=== PATIENT | female | born 1960 | race Caucasian/White ===

== ENCOUNTER 2016-10-23 15:27 | Emergency (ER) | payer BC ==
[2016-10-23 16:33] VITALS: BP 108/82
--- NOTE | 2016-10-23 18:06 | EDM.PDOC ---
ED HPI GENERAL MEDICAL PROBLEM - General Chief Complaint: Back Pain or Injury Stated Complaint: [id number] BACK PAIN Time Seen by Provider: 10/23/16 17:50 Source of Information: Reports: Patient, RN Notes Reviewed History Limitations: Reports: No Limitations - History of Present Illness INITIAL COMMENTS - FREE TEXT/NARRATIVE: the patient is a 56-year-old morbidly obese female who presents today with low back pain. She denies any injury or falls she denies any saddle anesthesia or numbness she does report some urinary symptoms with dysuria frequency and urgency. She denies fever chills nausea or vomiting. Onset: Gradual Quality: Reports: Burning, Dull Severity: Mild Improves with: Reports: None Worsens with: Reports: None Bilateral Lower Posterior Back Pain Score (Numeric/FACES): 8 - Related Data Allergies Allergy/AdvReac Type Severity Reaction Status Date / Time No Known Allergies Allergy Verified 10/23/16 16:21 Home Meds: Home Meds Aspirin [Gunjan Chewable Aspirin] 81 mg PO DAILY 07/25/13 [History] Atenolol [Tenormin] 25 mg PO DAILY 07/25/13 [History] Calcium Carbonate [Calcium] 500 mg PO BID 07/25/13 [History] Escitalopram [Lexapro] 20 mg PO DAILY 07/25/13 [History] Furosemide 20 mg PO BID 07/25/13 [History] Gabapentin [Neurontin] 100 mg PO BEDTIME 07/25/13 [History] Magnesium 250 mg PO DAILY 07/25/13 [History] Pantoprazole [ProTONIX] 40 mg PO DAILY 07/25/13 [History] Warfarin Sodium [Jantoven] 3.5 mg PO DAILY 07/25/13 [History] Warfarin Sodium [Jantoven] 4 mg PO DAILY 07/25/13 [History] atorvaSTATin [Lipitor] 20 mg PO BEDTIME 07/25/13 [History] Acetaminophen [Mapap] 325 mg PO 10/23/16 [History] Albuterol [Proair HFA] 8.5 gm INH PRN 10/23/16 [History] Beclomethasone Dipropionate [Qvar] 8.7 gm IH 10/23/16 [History] Cetirizine [ZyrTEC] 10 mg PO BEDTIME 10/23/16 [History] Cholecalciferol (Vitamin D3) [Vitamin D3] 1,000 unit PO 10/23/16 [History] Ipratropium [Atrovent] 0.5 mg INH PRN 10/23/16 [History] Nitroglycerin [Nitrostat] 0.4 mg BUCCAL PRN 10/23/16 [History] Zolpidem [Ambien] 10 mg PO BEDTIME 10/23/16 [History] Past Medical History HEENT History: Reports: Impaired Vision Other HEENT History: Sees well with glasses Cardiovascular History: Reports: Blood Clots/VTE/DVT, Hypertension Other Cardiovascular History: Hx of fluid on the heart May 2012. Stent was placed Respiratory History: Reports: Asthma, COPD Musculoskeletal History: Reports: Other (See Below) Other Musculoskeletal History: Ankle fracture October 2012 Psychiatric History: Reports: Depression - Past Surgical History Cardiovascular Surgical History: Reports: Coronary Artery Stent Social & Family History - Family History Psychiatric: Reports: Depression - Tobacco Use Smoking Status *Q: Never Smoker Years of Tobacco use: 30 Used Tobacco, but Quit: Yes Month Tobacco Last Used: November Second Hand Smoke Exposure: No - Caffeine Use Caffeine Use: Reports: Coffee, Soda - Alcohol Use Days Per Week of Alcohol Use: 0 - Recreational Drug Use Recreational Drug Use: No ED ROS GENERAL - Review of Systems Review Of Systems: ROS reveals no pertinent complaints other than HPI. ED EXAM, RENAL/ - Physical Exam Exam: See Below Exam Limited By: No Limitations General Appearance: Alert, WD/WN, No Apparent Distress, Other (morbidly obese) Head: Atraumatic, Normocephalic Neck: Normal Inspection, Supple, Non-Tender, Full Range of Motion Respiratory/Chest: No Respiratory Distress, Lungs Clear, Normal Breath Sounds, No Accessory Muscle Use, Chest Non-Tender Cardiovascular: Normal Peripheral Pulses, Regular Rate, Rhythm, No Edema, No Gallop, No JVD, No Murmur, No Rub GI/Abdominal: Normal Bowel Sounds, Soft, Non-Tender, No Organomegaly, No Distention, No Abnormal Bruit, No Mass Back Exam: Normal Inspection, Full Range of Motion, Paraspinal Tenderness ( bilaterally) Extremities: Normal Inspection, Normal Range of Motion, Non-Tender, Normal Capillary Refill, No Pedal Edema Neurological: Alert, Oriented, CN II-XII Intact, Normal Cognition, Normal Gait, Normal Reflexes, No Motor/Sensory Deficits Skin Exam: Warm, Dry, Intact, Normal Color, No Rash Course - Vital Signs Last Recorded V/S: Last Vital Signs Temp 98.5 F 10/23/16 16:23 Pulse 70 10/23/16 16:23 Resp 17 10/23/16 16:23 BP 108/82 10/23/16 16:23 Pulse Ox 96 10/23/16 16:23 - Orders/Labs/Meds Labs: Laboratory Tests 10/23/16 Range/Units 17:05 Urine Color Yellow (YELLOW) Urine Appearance Cloudy (CLEAR) Urine pH 6.0 (5.0-9.0) Ur Specific [place] 1.010 (1.005-1.030) Urine Protein Negative (NEGATIVE) Urine Glucose (UA) Negative (NEGATIVE) Urine Ketones Negative (NEGATIVE) Urine Occult Blood Trace-intact H (NEGATIVE) Urine Nitrite Positive H (NEGATIVE) Urine Bilirubin Negative (NEGATIVE) Urine Urobilinogen 0.2 (0.2-1.0) mg/dL Ur Leukocyte Esterase Moderate H (NEGATIVE) Urine RBC 0-5 /HPF Urine WBC 20-30 H (0-5/HPF) /HPF Ur Epithelial Cells Few /HPF Urine Bacteria Many H (0-FEW/HPF) /HPF - Re-Assessments/Exams Free Text/Narrative Re-Assessment/Exam: 10/23/16 18:06 patient above exam and labs were obtained and reviewed and patient found to have large urinary tract infection will be treated as Departure - Departure Time of Disposition: 18:06 Disposition: Home, Self-Care 01 Condition: good Clinical Impression: Urinary tract infection Qualifiers: Urinary tract infection type: acute cystitis Hematuria presence: with hematuria Qualified Code(s): N30.01 - Acute cystitis with hematuria - Discharge Information Instructions: Urinary Tract Infection, Adult, [id number] Forms: ED Department Discharge Additional Instructions: Discharge diagnose Urinate tract infection push clear liquids Take antibiotics till gone Follow up with PCP for Urine recheck in 10 days to ensure infection is gone or if you continue to have low back pain Use diclofenac as needed for discomfort do not mix with Motrin ibuprofen Advil or Aleve Return for increased pain nausea vomiting fever or worsening symptoms
== END 2016-10-23 18:11 | disposition home or self-care (01) ==
LOC: DL.ED 15:27
DX: N30.01 Acute cystitis with hematuria (principal); J45.909 Unspecified asthma, uncomplicated; J44.9 Chronic obstructive pulmonary disease, unspecified; F32.9 Major depressive disorder, single episode, unspecified; Z79.82 Long term (current) use of aspirin; Z79.899 Other long term (current) drug therapy
CPT/HCPCS: 81001; 99283

== ENCOUNTER 2016-10-26 16:17 | Emergency (ER) | payer BC ==
[2016-10-26 16:25] VITALS: BP 164/91
--- NOTE | 2016-10-26 16:26 | EDM.PDOC ---
ED HPI GENERAL MEDICAL PROBLEM - General Chief Complaint: Flank Pain Stated Complaint: KIDNEY PAIN . [phone] Time Seen by Provider: 10/26/16 16:25 Source of Information: Reports: Patient, Old Records (10/23/16), RN, RN Notes Reviewed History Limitations: Reports: No Limitations - History of Present Illness INITIAL COMMENTS - FREE TEXT/NARRATIVE: Complained of worsening right flank pain. Seen here 10/23/16 and diagnosed with UTI treated with Macrobid. Denies fever, chills, nausea and vomiting. Pain radiates to right buttock and into right posterior thigh. Denies injury. Severity: Severe Improves with: Reports: None Worsens with: Reports: None Associated Symptoms: Reports: No Other Symptoms Bilateral Flank Pain Score (Numeric/FACES): 9 - Related Data Allergies Allergy/AdvReac Type Severity Reaction Status Date / Time No Known Allergies Allergy Verified 10/26/16 16:37 Home Meds: Home Meds Aspirin [Gunjan Chewable Aspirin] 81 mg PO DAILY 07/25/13 [History] Atenolol [Tenormin] 25 mg PO DAILY 07/25/13 [History] Calcium Carbonate [Calcium] 500 mg PO BID 07/25/13 [History] Escitalopram [Lexapro] 20 mg PO DAILY 07/25/13 [History] Furosemide 20 mg PO BID 07/25/13 [History] Gabapentin [Neurontin] 100 mg PO BEDTIME 07/25/13 [History] Magnesium 250 mg PO DAILY 07/25/13 [History] Pantoprazole [ProTONIX] 40 mg PO DAILY 07/25/13 [History] Warfarin Sodium [Jantoven] 3.5 mg PO DAILY 07/25/13 [History] Warfarin Sodium [Jantoven] 4 mg PO DAILY 07/25/13 [History] atorvaSTATin [Lipitor] 20 mg PO BEDTIME 07/25/13 [History] Acetaminophen [Mapap] 325 mg PO 10/23/16 [History] Albuterol [Proair HFA] 8.5 gm INH PRN 10/23/16 [History] Beclomethasone Dipropionate [Qvar] 8.7 gm IH 10/23/16 [History] Cetirizine [ZyrTEC] 10 mg PO BEDTIME 10/23/16 [History] Cholecalciferol (Vitamin D3) [Vitamin D3] 1,000 unit PO 10/23/16 [History] Ipratropium [Atrovent] 0.5 mg INH PRN 10/23/16 [History] Nitroglycerin [Nitrostat] 0.4 mg BUCCAL PRN 10/23/16 [History] Zolpidem [Ambien] 10 mg PO BEDTIME 10/23/16 [History] Past Medical History HEENT History: Reports: Impaired Vision Other HEENT History: Sees well with glasses Cardiovascular History: Reports: Blood Clots/VTE/DVT, Hypertension Other Cardiovascular History: Hx of fluid on the heart May 2012. Stent was placed Respiratory History: Reports: Asthma, COPD Musculoskeletal History: Reports: Other (See Below) Other Musculoskeletal History: Ankle fracture October 2012 Psychiatric History: Reports: Depression - Past Surgical History Cardiovascular Surgical History: Reports: Coronary Artery Stent Social & Family History - Family History Psychiatric: Reports: Depression - Tobacco Use Smoking Status *Q: Never Smoker Years of Tobacco use: 30 Used Tobacco, but Quit: Yes Month Tobacco Last Used: November Second Hand Smoke Exposure: No - Caffeine Use Caffeine Use: Reports: Coffee, Soda - Alcohol Use Days Per Week of Alcohol Use: 0 - Recreational Drug Use Recreational Drug Use: No ED ROS GENERAL - Review of Systems Review Of Systems: ROS reveals no pertinent complaints other than HPI. ED EXAM, RENAL/ - Physical Exam Exam: See Below Exam Limited By: No Limitations General Appearance: Obese (morbidly) Neck: Normal Inspection, Supple, Non-Tender, Full Range of Motion Respiratory/Chest: No Respiratory Distress, Lungs Clear, Normal Breath Sounds, No Accessory Muscle Use, Chest Non-Tender Cardiovascular: Normal Peripheral Pulses, Regular Rate, Rhythm, No Edema, No Gallop, No JVD, No Murmur, No Rub GI/Abdominal: Other (morbidly obese benign abdomen) Back Exam: Other (tender at right paraspinal lumbar region. Decreased lumbar ROM.) Extremities: Normal Inspection, Normal Range of Motion, Non-Tender, Normal Capillary Refill, No Pedal Edema Neurological: Alert, Oriented, CN II-XII Intact, Normal Cognition, Normal Gait, Normal Reflexes, No Motor/Sensory Deficits Psychiatric: Normal Affect, Normal Mood Skin Exam: Warm, Dry, Intact, Normal Color, No Rash Course - Vital Signs Last Recorded V/S: Last Vital Signs Temp 35.9 C 10/26/16 16:24 Pulse 69 10/26/16 16:24 Resp 16 10/26/16 16:24 BP 164/91 H 10/26/16 16:24 Pulse Ox 96 10/26/16 16:24 - Orders/Labs/Meds Orders: Active Orders 24 hr Category Date Time Status Lumbar Spine 2 or 3V [CR] Urgent Exams 10/26/16 16:55 Ordered Labs: Laboratory Tests 10/26/16 10/26/16 10/26/16 Range/Units 17:21 17:21 17:21 WBC 8.1 (5.0-10.0) 10^3/uL RBC 4.82 (4.2-5.4) 10^6/uL Hgb 13.7 (12.0-16.0) g/dL Hct 42.5 (37.0-47.0) % MCV 88.2 (80-100) fL MCH 28.4 (27.0-34.0) pg MCHC 32.2 L (33.0-35.0) g/dL Plt Count 357 (150-450) 10^3/uL Neut % (Auto) 57.1 (42.2-75.2) % Lymph % (Auto) 32.7 (20.5-50.1) % Reagan % (Auto) 7.0 (2-8) % Eos % (Auto) 2.6 (1.0-3.0) % Baso % (Auto) 0.6 (0.0-1.0) % PT 28.3 H (9.0-12.0) SEC INR 2.8 H (0.9-1.2) Sodium 136 (135-145) mmol/L Potassium 4.2 (3.6-5.0) mmol/L Chloride 97 L (101-111) mmol/L Carbon Dioxide 29.0 (21.0-31.0) mmol/L Anion Gap 14.2 BUN 15 (7-18) mg/dL Creatinine 0.9 (0.6-1.3) mg/dL Est Cr Clr Drug Dosing 59.11 mL/min Estimated GFR (MDRD) > 60 Glucose 97 (74-105) mg/dL Calcium 9.6 (8.4-10.2) mg/dl Urine Color (YELLOW) Urine Appearance (CLEAR) Urine pH (5.0-9.0) Ur Specific [place] (1.005-1.030) Urine Protein (NEGATIVE) Urine Glucose (UA) (NEGATIVE) Urine Ketones (NEGATIVE) Urine Occult Blood (NEGATIVE) Urine Nitrite (NEGATIVE) Urine Bilirubin (NEGATIVE) Urine Urobilinogen (0.2-1.0) mg/dL Ur Leukocyte Esterase (NEGATIVE) Urine RBC /HPF Urine WBC (0-5/HPF) /HPF Ur Epithelial Cells /HPF Amorphous Sediment (0/HPF) /HPF Urine Bacteria (0-FEW/HPF) /HPF 10/26/16 Range/Units 17:26 WBC (5.0-10.0) 10^3/uL RBC (4.2-5.4) 10^6/uL Hgb (12.0-16.0) g/dL Hct (37.0-47.0) % MCV (80-100) fL MCH (27.0-34.0) pg MCHC (33.0-35.0) g/dL Plt Count (150-450) 10^3/uL Neut % (Auto) (42.2-75.2) % Lymph % (Auto) (20.5-50.1) % [place] % (Auto) (2-8) % Eos % (Auto) (1.0-3.0) % Baso % (Auto) (0.0-1.0) % PT (9.0-12.0) SEC INR (0.9-1.2) Sodium (135-145) mmol/L Potassium (3.6-5.0) mmol/L Chloride (101-111) mmol/L Carbon Dioxide (21.0-31.0) mmol/L Anion Gap BUN (7-18) mg/dL Creatinine (0.6-1.3) mg/dL Est Cr Clr Drug Dosing mL/min Estimated GFR (MDRD) Glucose (74-105) mg/dL Calcium (8.4-10.2) mg/dl Urine Color Yellow (YELLOW) Urine Appearance Slightly cloudy (CLEAR) Urine pH 5.5 (5.0-9.0) Ur Specific [place] 1.010 (1.005-1.030) Urine Protein Negative (NEGATIVE) Urine Glucose (UA) Negative (NEGATIVE) Urine Ketones Negative (NEGATIVE) Urine Occult Blood Negative (NEGATIVE) Urine Nitrite Negative (NEGATIVE) Urine Bilirubin Negative (NEGATIVE) Urine Urobilinogen 0.2 (0.2-1.0) mg/dL Ur Leukocyte Esterase Moderate H (NEGATIVE) Urine RBC 0-5 /HPF Urine WBC 5-10 H (0-5/HPF) /HPF Ur Epithelial Cells Moderate H /HPF Amorphous Sediment Few (0/HPF) /HPF Urine Bacteria Few (0-FEW/HPF) /HPF - Radiology Interpretation Free Text/Narrative:: L-spine x-ray: Per rad report no fracture, degenerative changes of the spine, mild degenerative changes of right and left sacroiliac joints. Departure - Departure Time of Disposition: 17:48 Disposition: Home, Self-Care 01 Condition: good Clinical Impression: Sciatica Qualifiers: Laterality: right Qualified Code(s): M54.31 - Sciatica, right side - Discharge Information Instructions: Sciatica, [id number] Forms: ED Department Discharge Additional Instructions: Hydrocodone APAP 5mg/325mg. Follow up clinic next week. - My Orders Last 24 Hours: My Active Orders 10/26/16 16:55 Lumbar Spine 2 or 3V [CR] Urgent - Assessment/Plan Last 24 Hours: My Active Orders 10/26/16 16:55 Lumbar Spine 2 or 3V [CR] Urgent
[2016-10-26 17:44] LABS: CHLORIDE,CL 97 mmol/L (101-111); SODIUM,NA 136 mmol/L (135-145)
== END 2016-10-26 18:00 | disposition home or self-care (01) ==
LOC: DL.ED 16:17
DX: M54.31 Sciatica, right side (principal); J45.909 Unspecified asthma, uncomplicated; J44.9 Chronic obstructive pulmonary disease, unspecified; F32.9 Major depressive disorder, single episode, unspecified; I10 Essential (primary) hypertension; Z79.82 Long term (current) use of aspirin; Z79.899 Other long term (current) drug therapy; Z79.01 Long term (current) use of anticoagulants
CPT/HCPCS: 36415; 72100; 80048; 81001; 85025; 85610; 99284

== ENCOUNTER 2016-12-06 18:16 | Emergency (ER) | payer BC ==
[2016-12-06 19:53] VITALS: BP 143/64
[2016-12-06] MEDS ORDERED: Acetaminophen/oxyCODONE 325-5 MG Tab PO ONE ×2 (19:57→20:37)
[2016-12-06] MEDS ORDERED: Ketorolac 30 MG/ML SDV IM ONE (19:57)
--- NOTE | 2016-12-06 20:35 | EDM.PDOC ---
[id number] Complaint: FELL AND LEFT KNEE IS HURTING, [id number] Time Seen by Provider: 12/06/16 19:00 Source of Information: Reports: Patient History Limitations: Reports: No Limitations - History of Present Illness INITIAL COMMENTS - FREE TEXT/NARRATIVE: slipped in BR this am landing on left kne, increased swelling and pain difficulty putting weight on extremity. On coumadin for previous DVT/PE. 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 Left Knee Pain Score (Numeric/FACES): 7 - Related Data Allergies Allergy/AdvReac Type Severity Reaction Status Date / Time No Known Allergies Allergy Verified 12/06/16 18:33 Home Meds: Home Meds Aspirin [Gunjan Chewable Aspirin] 81 mg PO DAILY 07/25/13 [History] Atenolol [Tenormin] 25 mg PO DAILY 07/25/13 [History] Calcium Carbonate [Calcium] 500 mg PO BID 07/25/13 [History] Escitalopram [Lexapro] 20 mg PO DAILY 07/25/13 [History] Furosemide 20 mg PO BID 07/25/13 [History] Gabapentin [Neurontin] 100 mg PO BEDTIME 07/25/13 [History] Magnesium 250 mg PO DAILY 07/25/13 [History] Pantoprazole [ProTONIX] 40 mg PO DAILY 07/25/13 [History] Warfarin Sodium [Jantoven] 4 mg PO ASDIRECTED 07/25/13 [History] atorvaSTATin [Lipitor] 20 mg PO BEDTIME 07/25/13 [History] Acetaminophen [Mapap] 325 mg PO ASDIRECTED PRN 10/23/16 [History] Albuterol [Proair HFA] 8.5 gm INH ASDIRECTED PRN 10/23/16 [History] Beclomethasone Dipropionate [Qvar] 8.7 gm IH BID 10/23/16 [History] Cetirizine [ZyrTEC] 10 mg PO BEDTIME 10/23/16 [History] Cholecalciferol (Vitamin D3) [Vitamin D3] 1,000 unit PO DAILY 10/23/16 [History] Ipratropium [Atrovent] 0.5 mg INH ASDIRECTED PRN 10/23/16 [History] Nitroglycerin [Nitrostat] 0.4 mg BUCCAL PRN 10/23/16 [History] Zolpidem [Ambien] 10 mg PO ASDIRECTED PRN 10/23/16 [History] Past Medical History HEENT History: Reports: Impaired Vision Other HEENT History: Sees well with glasses Cardiovascular History: Reports: Blood Clots/VTE/DVT, Hypertension, Other (See Below) Other Cardiovascular History: Hx of fluid on the heart May 2012. Stent was placed , PE Respiratory History: Reports: Asthma, COPD, PE, Sleep Apnea, Other (See Below) Other Respiratory History: sleep apnea machine. Gastrointestinal History: Reports: GERD [employer] History: Reports: Musculoskeletal History: Reports: Other (See Below) Other Musculoskeletal History: Ankle fracture October 2012 Psychiatric History: Reports: Depression, Panic Attack Endocrine/Metabolic History: Reports: Obesity/BMI 30+ Hematologic History: Reports: Blood Transfusion(s) Dermatologic History: Reports: Eczema - Past Surgical History Cardiovascular Surgical History: Reports: Coronary Artery Stent GI Surgical History: Reports: Appendectomy, Cholecystectomy, Hernia Repair/Other , Other (See Below) Other GI Surgeries/Procedures: umbilical surg. Hernia. Social & Family History - Family History Family Medical History: Noncontributory Psychiatric: Reports: Depression - Tobacco Use Smoking Status *Q: Never Smoker Years of Tobacco use: 30 Used Tobacco, but Quit: Yes Month Tobacco Last Used: November Second Hand Smoke Exposure: No - Caffeine Use Caffeine Use: Reports: Coffee Other Caffeine Use: 2 cups - Alcohol Use Days Per Week of Alcohol Use: 0 - Recreational Drug Use Recreational Drug Use: No Review of Systems - Review of Systems Review Of Systems: ROS reveals no pertinent complaints other than HPI. ED EXAM, GENERAL - Physical Exam Exam: See Below Exam Limited By: No Limitations General Appearance: Alert, Moderate Distress Eye Exam: Bilateral Eye: EOMI Ears: Normal External Exam Throat/Mouth: Normal Lips, Normal Teeth Head: Normocephalic Neck: Normal Inspection Respiratory/Chest: No Respiratory Distress, Lungs Clear Cardiovascular: Normal Peripheral Pulses, Regular Rate, Rhythm Extremities: Joint Swelling (left knee), Leg Pain (anterior lower leg, bruising lateral below knee, moderate knee effusion, tender lateral knee with palpation. ), Limited Range of Motion. No: Normal Inspection, Normal Range of Motion, Mottled, Pallor Neurological: Alert, Oriented, Normal Cognition Psychiatric: Normal Affect Skin Exam: Warm, Dry, Intact, Ecchymosis. No: Erythema, Increased Warmth, Wound /Incision Course - Vital Signs Last Recorded V/S: Last Vital Signs Temp 96.2 F 12/06/16 19:51 Pulse 60 12/06/16 19:51 Resp 14 12/06/16 19:51 BP 143/64 H 12/06/16 19:51 Pulse Ox 98 12/06/16 19:51 - Orders/Labs/Meds Meds: Medications Discontinued Medications Generic Name Dose Route Start Last Admin Trade Name Freq PRN Reason Stop Dose Admin Ketorolac Tromethamine 30 mg 12/06/16 19:57 12/06/16 20:04 Toradol IM 12/06/16 19:58 30 mg ONETIME ONE Administration Oxycodone/Acetaminophen 1 tab 12/06/16 19:57 12/06/16 20:03 Percocet 325-5 Mg PO 12/06/16 19:58 1 tab ONETIME ONE Administration Oxycodone/Acetaminophen Confirm 12/06/16 20:37 12/06/16 20:41 Percocet 325-5 Mg Administered 12/06/16 20:38 Not Given Dose 2 tab .ROUTE .K-MED ONE - Radiology Interpretation Free Text/Narrative:: Left knee exray negative for fracture or dislocation, Samll suprapatellar joint effusion noted - Re-Assessments/Exams Free Text/Narrative Re-Assessment/Exam: 12/07/16 10:27 Bony wrap to left knee and proximal 1/3 of lower extremity. Xray findings dixcussed with patient and family. States she has walker available to utilize at home and has used before. Departure - Departure Time of Disposition: 20:32 Disposition: Home, Self-Care 01 Condition: Good Clinical Impression: Injury of left knee Qualifiers: Encounter type: initial encounter Qualified Code(s): S89.92XA - Unspecified injury of left lower leg, initial encounter Fall at home Qualifiers: Encounter type: initial encounter Qualified Code(s): W19.XXXA - Unspecified fall, initial encounter - Discharge Information Instructions: Knee Sprain, [id number] Forms: ED Department Discharge Additional Instructions: follow up in clinic recheck next week, sooner if increase swelling or bruising ice to lower extremity, rest, elevation use walker, limited weight bearing Percocet 5/325 one every 6 hours as needed for pain #14
[2016-12-06] MEDS ORDERED: Acetaminophen/oxyCODONE 325-5 MG Tab ONE (20:37)
== END 2016-12-06 20:44 | disposition home or self-care (01) ==
LOC: DL.ED 18:16
DX: S80.02XA Contusion of left knee, initial encounter (principal); I10 Essential (primary) hypertension; J44.9 Chronic obstructive pulmonary disease, unspecified; J45.909 Unspecified asthma, uncomplicated; K21.9 Gastro-esophageal reflux disease without esophagitis; F32.9 Major depressive disorder, single episode, unspecified; Z95.5 Presence of coronary angioplasty implant and graft; Z90.49 Acquired absence of other specified parts of digestive tract; Z98.890 Other specified postprocedural states; Z79.01 Long term (current) use of anticoagulants; Z79.899 Other long term (current) drug therapy; Z86.718 Personal history of other venous thrombosis and embolism; Z79.82 Long term (current) use of aspirin; W18.49XA Other slipping, tripping and stumbling without falling, initial encounter; Y92.002 Bathroom of unspecified non-institutional (private) residence as the place of occurrence of the external cause
CPT/HCPCS: 73562; 96372; 99283; A9270; J1885

== ENCOUNTER 2016-12-12 15:54 | Emergency (ER) | payer BC ==
--- NOTE | 2016-12-12 16:57 | EDM.PDOC ---
<Alfonso Sheppard Prateek - Last Filed: 12/12/16 18:59> ED HPI GENERAL MEDICAL PROBLEM - General Chief Complaint: Fever Stated Complaint: TEMP. [phone] Time Seen by Provider: 12/12/16 16:40 Source of Information: Reports: Patient History Limitations: Reports: No Limitations - History of Present Illness INITIAL COMMENTS - FREE TEXT/NARRATIVE: This 56 yo female patient reports to the ED due to a temp over 100. The patient reports she was advised to come to the ED if she had a temp over 100. The patient was seen in the ED 1 week ago due to a ground level fall on her left knee, was seen Saturday in the Clinic, was seen today in the Clinic and now comes to the ED due to a temp. The patient was started on Augmentin 2 days ago and has been taking the medication as directed. The patient reports she did have an x-ray during her initial visit in the ED (last ). Onset Date: 12/06/16 Duration: Constant, Getting Worse Location: Reports: Lower Extremity, Left (lateral) Quality: Reports: Ache, Dull Severity: Moderate Improves with: Reports: None Worsens with: Reports: None Associated Symptoms: Reports: No Other Symptoms Left Leg Pain Score (Numeric/FACES): 8 - Related Data Allergies Allergy/AdvReac Type Severity Reaction Status Date / Time dorsa Allergy Hives Uncoded 12/12/16 16:28 Home Meds: Home Meds Aspirin [Gunjan Chewable Aspirin] 81 mg PO DAILY 07/25/13 [History] Atenolol [Tenormin] 25 mg PO DAILY 07/25/13 [History] Calcium Carbonate [Calcium] 500 mg PO BID 07/25/13 [History] Escitalopram [Lexapro] 20 mg PO DAILY 07/25/13 [History] Furosemide 20 mg PO BID 07/25/13 [History] Gabapentin [Neurontin] 100 mg PO BEDTIME 07/25/13 [History] Magnesium 250 mg PO DAILY 07/25/13 [History] Pantoprazole [ProTONIX] 40 mg PO DAILY 07/25/13 [History] Warfarin Sodium [Jantoven] 3.5 mg PO ASDIRECTED 07/25/13 [History] atorvaSTATin [Lipitor] 20 mg PO BEDTIME 07/25/13 [History] Acetaminophen [Mapap] 325 mg PO ASDIRECTED PRN 10/23/16 [History] Albuterol [Proair HFA] 8.5 gm INH ASDIRECTED PRN 10/23/16 [History] Beclomethasone Dipropionate [Qvar] 8.7 gm IH BID 10/23/16 [History] Cetirizine [ZyrTEC] 10 mg PO BEDTIME PRN 10/23/16 [History] Cholecalciferol (Vitamin D3) [Vitamin D3] 1,000 unit PO DAILY 10/23/16 [History] Ipratropium [Atrovent] 0.5 mg INH ASDIRECTED PRN 10/23/16 [History] Nitroglycerin [Nitrostat] 0.4 mg BUCCAL DAILY PRN 10/23/16 [History] Zolpidem [Ambien] 10 mg PO ASDIRECTED PRN 10/23/16 [History] Amoxicillin/Clavulanate K [Augmentin 875 MG/125 MG] 1 tab PO BID 12/12/16 [ History] Past Medical History HEENT History: Reports: Impaired Vision Other HEENT History: Sees well with glasses Cardiovascular History: Reports: Blood Clots/VTE/DVT, Hypertension, Other (See Below) Other Cardiovascular History: Hx of fluid on the heart May 2012. Stent was placed , PE Respiratory History: Reports: Asthma, COPD, PE, Sleep Apnea, Other (See Below) Other Respiratory History: sleep apnea machine. 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: Musculoskeletal History: Reports: Other (See Below) Other Musculoskeletal History: Ankle fracture October 2012 Neurological History: Reports: None Psychiatric History: Reports: Depression, Panic Attack Endocrine/Metabolic History: Reports: Obesity/BMI 30+ Hematologic History: Reports: Blood Transfusion(s) Immunologic History: Reports: None Oncologic (Cancer) History: Reports: None Dermatologic History: Reports: Eczema - Infectious Disease History Infectious Disease History: Reports: None - Past Surgical History Head Surgeries/Procedures: Reports: None Cardiovascular Surgical History: Reports: Coronary Artery Stent GI Surgical History: Reports: Appendectomy, Cholecystectomy, Hernia Repair/Other , Other (See Below) Other GI Surgeries/Procedures: umbilical surg. Hernia. Social & Family History - Family History Family Medical History: Noncontributory Psychiatric: Reports: Depression - Tobacco Use Smoking Status *Q: Never Smoker Years of Tobacco use: 30 Used Tobacco, but Quit: Yes Month Tobacco Last Used: November Second Hand Smoke Exposure: No - Caffeine Use Caffeine Use: Reports: Coffee Other Caffeine Use: 2 cups - Alcohol Use Days Per Week of Alcohol Use: 0 - Recreational Drug Use Recreational Drug Use: No ED ROS GENERAL - Review of Systems Review Of Systems: ROS reveals no pertinent complaints other than HPI. ED EXAM, GENERAL - Physical Exam Exam: See Below Exam Limited By: No Limitations General Appearance: Alert, WD/WN, Moderate Distress, Obese (morbid) Eye Exam: Bilateral Eye: EOMI, Normal Inspection, PERRL Ears: Normal External Exam, Normal Canal, Hearing Grossly Normal, Normal TMs Nose: Normal Inspection, Normal Mucosa, No Blood Throat/Mouth: Normal Inspection, Normal Lips, Normal Teeth, Normal Gums, Normal Oropharynx, Normal Voice, No Airway Compromise Head: Atraumatic, Normocephalic Neck: Normal Inspection, Supple, Non-Tender, Full Range of Motion Respiratory/Chest: No Respiratory Distress, Lungs Clear, Normal Breath Sounds, No Accessory Muscle Use, Chest Non-Tender Cardiovascular: Normal Peripheral Pulses, Regular Rate, Rhythm, No Edema, No Gallop, No JVD, No Murmur, No Rub GI/Abdominal: Normal Bowel Sounds, Soft, Non-Tender, No Organomegaly, No Distention, No Abnormal Bruit, No Mass, Other (obese) (Female) Exam: Deferred Rectal (Female) Exam: Deferred Back Exam: Normal Inspection, Full Range of Motion, NT Extremities: Leg Pain (left lower leg pain and swelling) Neurological: Alert, Oriented, CN II-XII Intact, Normal Cognition, Normal Gait, Normal Reflexes, No Motor/Sensory Deficits Psychiatric: Normal Affect, Normal Mood Skin Exam: Erythema, Increased Warmth Lymphatic: No Adenopathy Course - Vital Signs Last Recorded V/S: Last Vital Signs Temp 99.3 F 12/12/16 19:04 Pulse 71 12/12/16 19:04 Resp 20 12/12/16 19:04 BP 113/53 L 12/12/16 19:04 Pulse Ox 97 12/12/16 19:04 - Orders/Labs/Meds Orders: Active Orders 24 hr Category Date Time Status CULTURE BLOOD [BC] Stat Lab 12/12/16 16:43 Received CULTURE BLOOD [BC] Stat Lab 12/12/16 16:49 Received Blood Culture x2 Reflex Set [OM.PC] Stat Oth 12/12/16 16:29 Ordered Labs: Laboratory Tests 12/12/16 12/12/16 12/12/16 Range/Units 16:43 16:43 16:43 WBC 10.3 H (5.0-10.0) 10^3/uL RBC 3.97 L (4.2-5.4) 10^6/uL Hgb 11.5 L (12.0-16.0) g/dL Hct 36.1 L (37.0-47.0) % MCV 90.9 (80-100) fL MCH 29.0 (27.0-34.0) pg MCHC 31.9 L (33.0-35.0) g/dL Plt Count 386 (150-450) 10^3/uL Neut % (Auto) 57.4 (42.2-75.2) % Lymph % (Auto) 31.4 (20.5-50.1) % [place] % (Auto) 8.7 H (2-8) % Eos % (Auto) 2.0 (1.0-3.0) % Baso % (Auto) 0.5 (0.0-1.0) % PT (9.0-12.0) SEC INR (0.9-1.2) D-Dimer, Quantitative (0-400) ng/mL Sodium 139 (135-145) mmol/L Potassium 4.0 (3.6-5.0) mmol/L Chloride 100 L (101-111) mmol/L Carbon Dioxide 27.0 (21.0-31.0) mmol/L Anion Gap 16.0 BUN 15 (7-18) mg/dL Creatinine 1.0 (0.6-1.3) mg/dL Est Cr Clr Drug Dosing TNP Estimated GFR (MDRD) 58 BUN/Creatinine Ratio 15.00 Glucose 97 (74-105) mg/dL Lactic Acid 1.8 (0.5-2.2) mmol/L Calcium 9.0 (8.4-10.2) mg/dl Total Bilirubin 0.8 (0.2-1.0) mg/dL AST 16 (10-42) IU/L ALT 16 (10-60) IU/L Alkaline Phosphatase 93 (42-121) IU/L B-Natriuretic Peptide (0-100) pg/ml Total Protein 6.6 L (6.7-8.2) g/dl Albumin 3.2 (3.2-5.5) g/dl Globulin 3.4 Albumin/Globulin Ratio 0.94 12/12/16 12/12/16 12/12/16 Range/Units 16:43 16:43 16:43 WBC (5.0-10.0) 10^3/uL RBC (4.2-5.4) 10^6/uL Hgb (12.0-16.0) g/dL Hct (37.0-47.0) % MCV (80-100) fL MCH (27.0-34.0) pg MCHC (33.0-35.0) g/dL Plt Count (150-450) 10^3/uL Neut % (Auto) (42.2-75.2) % Lymph % (Auto) (20.5-50.1) % [place] % (Auto) (2-8) % Eos % (Auto) (1.0-3.0) % Baso % (Auto) (0.0-1.0) % PT 15.6 H (9.0-12.0) SEC INR 1.5 H (0.9-1.2) D-Dimer, Quantitative 195 (0-400) ng/mL Sodium (135-145) mmol/L Potassium (3.6-5.0) mmol/L Chloride (101-111) mmol/L Carbon Dioxide (21.0-31.0) mmol/L Anion Gap BUN (7-18) mg/dL Creatinine (0.6-1.3) mg/dL Est Cr Clr Drug Dosing Estimated GFR (MDRD) BUN/Creatinine Ratio Glucose (74-105) mg/dL Lactic Acid (0.5-2.2) mmol/L Calcium (8.4-10.2) mg/dl Total Bilirubin (0.2-1.0) mg/dL AST (10-42) IU/L ALT (10-60) IU/L Alkaline Phosphatase (42-121) IU/L B-Natriuretic Peptide 55 (0-100) pg/ml Total Protein (6.7-8.2) g/dl Albumin (3.2-5.5) g/dl Globulin Albumin/Globulin Ratio Meds: Medications Discontinued Medications Generic Name Dose Route Start Last Admin Trade Name Dusty PRN Reason Stop Dose Admin Hydromorphone HCl 1 mg 12/12/16 19:39 12/12/16 19:45 Dilaudid IVPUSH 12/12/16 19:40 1 mg ONETIME ONE Administration Iopamidol 100 ml 12/12/16 18:12 12/12/16 18:12 Isovue-300 (61%) IVPUSH 12/12/16 18:13 100 ml ONETIME ONE Administration Ondansetron HCl 4 mg 12/12/16 19:39 12/12/16 19:45 Zofran IV 12/12/16 19:40 4 mg ONETIME ONE Administration Departure - Departure Disposition: Home, Self-Care 01 Clinical Impression: Intramuscular hematoma Fall in home Qualifiers: Encounter type: subsequent encounter Qualified Code(s): W19.XXXD - Unspecified fall, subsequent encounter; Y92.099 - Unspecified place in other non- institutional residence as the place of occurrence of the external cause - Discharge Information Instructions: Hematoma, [id number] Forms: ED Department Discharge Additional Instructions: Hydrocodone 10/325 one every 6 hours as needed for pain rest Clinic follow up on Saturday sooner if increased pain walker, touch toe weight bearing <Malorie Rey - Last Filed: 12/13/16 05:52> Course - Radiology Interpretation Free Text/Narrative:: bilateral knee effusions, large intramuscular hematoma. - Re-Assessments/Exams Free Text/Narrative Re-Assessment/Exam: Good result with decrease in pain from Dilaudid. Patient reports ortho appointment Saturday am. Lower left extremity pain improved today and was able to sleep last night, prior night unable to find comfortable position. Has been aware of need to keep movement in lower extremity even though not as active or walking on it. Notes warmth still present but does not seem as red as prior. Does not report any change in sensation. States prior hx of better pain relief with hydrocodone than with percocet. Departure - Departure Time of Disposition: 20:35 Condition: Fair
[2016-12-12 17:15] LABS: CHLORIDE,CL 100 mmol/L (101-111); SODIUM,NA 139 mmol/L (135-145)
[2016-12-12] MEDS ORDERED: Iopamidol 612 MG/ML 100 ML Bottle IVPUSH ONE (18:12)
[2016-12-12] MEDS ORDERED: HYDROmorphone 1 MG/ML Syringe IVPUSH ONE (19:39)
[2016-12-12] MEDS ORDERED: Ondansetron 4 MG/2 ML SDV IV ONE (19:39)
[2016-12-12] MEDS ORDERED: Acetaminophen/HYDROcodone 325-10 MG Tab ONE (20:27)
[2016-12-12] MEDS ORDERED: Acetaminophen/HYDROcodone 325-10 MG Tab PO ONE (20:27)
[2016-12-12 20:45] VITALS: BP 119/69
== END 2016-12-12 20:38 | disposition home or self-care (01) ==
LOC: DL.ED 15:54
DX: S80.02XA Contusion of left knee, initial encounter (principal); H54.7 Unspecified visual loss; J45.909 Unspecified asthma, uncomplicated; J44.9 Chronic obstructive pulmonary disease, unspecified; K21.9 Gastro-esophageal reflux disease without esophagitis; F32.9 Major depressive disorder, single episode, unspecified; E66.9 Obesity, unspecified; I10 Essential (primary) hypertension; Z95.5 Presence of coronary angioplasty implant and graft; Z79.82 Long term (current) use of aspirin; Z79.899 Other long term (current) drug therapy; Z86.711 Personal history of pulmonary embolism; W18.30XA Fall on same level, unspecified, initial encounter; Z79.01 Long term (current) use of anticoagulants
CPT/HCPCS: 36415; 73701; 80053; 83605; 83880; 85025; 85379; 85610; 87040; 96374; 96375; 99284; A9270; J1170; J2405; Q9967

== ENCOUNTER 2017-03-06 08:59 | Emergency (ER) | payer BC ==
[2017-03-06] MEDS ORDERED: Sodium Chloride 0.9% 10 ML Syringe FLUSH PRN (09:12)
--- NOTE | 2017-03-06 09:27 | EDM.PDOC ---
ED HPI GENERAL MEDICAL PROBLEM - General Chief Complaint: Chest Pain Stated Complaint: [id number] CHEST PAIN Time Seen by Provider: 03/06/17 09:20 Source of Information: Reports: Patient, Family, RN, RN Notes Reviewed History Limitations: Reports: No Limitations - History of Present Illness INITIAL COMMENTS - FREE TEXT/NARRATIVE: Patient presents to the ER with c/o chest pain. She states the pain began about 0630 today. She rates the pain at a 9/10, radiating from the left chest down the left arm, left side of the jaw, and between the shoulder blades. She states she has had a constant headache for the past 3 days. SHe denies fever or chills , sob, vomiting or diarrhea. She admits to nausea with the chest pain. She denies any recent illnesses, yet her states sinus congestion and cough approximately 4 days ago. Onset: Today, Sudden Onset Date: 03/06/17 Onset Time: 06:30 Location: Reports: Chest Improves with: Reports: None Worsens with: Reports: None Associated Symptoms: Reports: Chest Pain, Nausea/Vomiting Left Chest Pain Score (Numeric/FACES): 9 - Related Data Allergies Allergy/AdvReac Type Severity Reaction Status Date / Time dorsa Allergy Hives Uncoded 12/12/16 16:28 Home Meds: Home Meds Aspirin [Gunjan Chewable Aspirin] 81 mg PO DAILY 07/25/13 [History] Atenolol [Tenormin] 25 mg PO DAILY 07/25/13 [History] Calcium Carbonate [Calcium] 500 mg PO BID 07/25/13 [History] Escitalopram [Lexapro] 20 mg PO DAILY 07/25/13 [History] Furosemide 20 mg PO BID 07/25/13 [History] Gabapentin [Neurontin] 100 mg PO BEDTIME 07/25/13 [History] Magnesium 250 mg PO DAILY 07/25/13 [History] Pantoprazole [ProTONIX] 40 mg PO DAILY 07/25/13 [History] Warfarin Sodium [Jantoven] 3.5 mg PO ASDIRECTED 07/25/13 [History] atorvaSTATin [Lipitor] 20 mg PO BEDTIME 07/25/13 [History] Acetaminophen [Mapap] 325 mg PO ASDIRECTED PRN 10/23/16 [History] Albuterol [Proair HFA] 8.5 gm INH ASDIRECTED PRN 10/23/16 [History] Beclomethasone Dipropionate [Qvar] 8.7 gm IH BID 10/23/16 [History] Cetirizine [ZyrTEC] 10 mg PO BEDTIME PRN 10/23/16 [History] Cholecalciferol (Vitamin D3) [Vitamin D3] 1,000 unit PO DAILY 10/23/16 [History] Ipratropium [Atrovent] 0.5 mg INH ASDIRECTED PRN 10/23/16 [History] Nitroglycerin [Nitrostat] 0.4 mg BUCCAL DAILY PRN 10/23/16 [History] Zolpidem [Ambien] 10 mg PO ASDIRECTED PRN 10/23/16 [History] Past Medical History HEENT History: Reports: Impaired Vision Other HEENT History: Sees well with glasses Cardiovascular History: Reports: Blood Clots/VTE/DVT, High Cholesterol, Hypertension, Other (See Below) Other Cardiovascular History: Hx of fluid on the heart May 2012. Stent was placed , PE Respiratory History: Reports: Asthma, COPD, PE, Sleep Apnea, Other (See Below) Other Respiratory History: sleep apnea machine. 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: Musculoskeletal History: Reports: Other (See Below) Other Musculoskeletal History: Ankle fracture October 2012, foot surgery Neurological History: Reports: Neuropathy, Peripheral Psychiatric History: Reports: Depression, Panic Attack Endocrine/Metabolic History: Reports: Obesity/BMI 30+ Hematologic History: Reports: Blood Transfusion(s) Immunologic History: Reports: None Oncologic (Cancer) History: Reports: None Dermatologic History: Reports: Eczema - Infectious Disease History Infectious Disease History: Reports: None - Past Surgical History Head Surgeries/Procedures: Reports: None Cardiovascular Surgical History: Reports: Coronary Artery Stent GI Surgical History: Reports: Appendectomy, Cholecystectomy, Hernia Repair/Other , Other (See Below) Other GI Surgeries/Procedures: umbilical surg. Hernia. Social & Family History - Family History Family Medical History: Noncontributory Psychiatric: Reports: Depression - Tobacco Use Smoking Status *Q: Never Smoker Years of Tobacco use: 30 Used Tobacco, but Quit: Yes Month Tobacco Last Used: November Second Hand Smoke Exposure: No - Caffeine Use Caffeine Use: Reports: Coffee Other Caffeine Use: 2 cups - Alcohol Use Days Per Week of Alcohol Use: 0 - Recreational Drug Use Recreational Drug Use: No ED ROS GENERAL - Review of Systems Review Of Systems: ROS reveals no pertinent complaints other than HPI. ED EXAM, GENERAL - Physical Exam Exam: See Below Exam Limited By: No Limitations General Appearance: Alert, WD/WN, No Apparent Distress Eye Exam: Bilateral Eye: Normal Inspection, PERRL Ears: Normal External Exam, Hearing Grossly Normal Nose: Normal Inspection Throat/Mouth: Normal Inspection, Normal Lips, Normal Teeth, Normal Gums, Normal Oropharynx, Normal Voice, No Airway Compromise Head: Atraumatic, Normocephalic Neck: Normal Inspection, Supple, Non-Tender, Full Range of Motion Respiratory/Chest: No Respiratory Distress, Lungs Clear, Normal Breath Sounds, No Accessory Muscle Use, Chest Non-Tender Cardiovascular: Normal Peripheral Pulses, Regular Rate, Rhythm, No Edema, No Gallop, No JVD, No Murmur, No Rub Peripheral Pulses: 2+: Radial (L), Radial (R) GI/Abdominal: Normal Bowel Sounds, Soft, Non-Tender (Female) Exam: Deferred Rectal (Female) Exam: Deferred Back Exam: Normal Inspection, Full Range of Motion Extremities: Normal Inspection, Normal Range of Motion, Non-Tender, No Pedal Edema, Normal Capillary Refill Neurological: Alert, Oriented, Normal Cognition, No Motor/Sensory Deficits Psychiatric: Normal Affect, Normal Mood Skin Exam: Warm, Dry, Intact, Normal Color, No Rash Lymphatic: No Adenopathy EKG INTERPRETATION EKG Date: 03/06/17 Time: 09:08 Rhythm: NSR Rate (Beats/Min): 59 [place]: Normal P-Wave: Present QRS: Normal ST-T: Normal QT: Normal Comparison: NA - No Prior EKG Course - Vital Signs Last Recorded V/S: Last Vital Signs Temp 96.1 F 03/06/17 09:14 Pulse 61 03/06/17 10:42 Resp 13 03/06/17 10:42 BP 121/66 03/06/17 10:42 Pulse Ox 97 03/06/17 10:42 - Orders/Labs/Meds Orders: Active Orders 24 hr Category Date Time Status EKG Documentation Completion [RC] STAT Care 03/06/17 09:12 Active Peripheral IV Care [RC] . DIRECTED Care 03/06/17 09:13 Active Peripheral IV Insertion Adult [OM.PC] Stat Oth 03/06/17 09:12 Ordered Labs: Laboratory Tests 03/06/17 03/06/17 Range/Units 09:26 09:26 WBC 8.2 (5.0-10.0) 10^3/uL RBC 4.60 (4.2-5.4) 10^6/uL Hgb 13.2 D (12.0-16.0) g/dL Hct 41.5 (37.0-47.0) % MCV 90.0 (80-100) fL MCH 28.6 (27.0-34.0) pg MCHC 31.8 L (33.0-35.0) g/dL Plt Count 336 (150-450) 10^3/uL Neut % (Auto) 57.1 (42.2-75.2) % Lymph % (Auto) 32.5 (20.5-50.1) % [place] % (Auto) 7.4 (2-8) % Eos % (Auto) 2.4 (1.0-3.0) % Baso % (Auto) 0.6 (0.0-1.0) % Sodium 139 (135-145) mmol/L Potassium 4.4 (3.6-5.0) mmol/L Chloride 100 L (101-111) mmol/L Carbon Dioxide 30.0 (21.0-31.0) mmol/L Anion Gap 13.4 BUN 14 (7-18) mg/dL Creatinine 0.9 (0.6-1.3) mg/dL Est Cr Clr Drug Dosing 59.11 mL/min Estimated GFR (MDRD) > 60 BUN/Creatinine Ratio 15.55 Glucose 98 (74-105) mg/dL Calcium 9.3 (8.4-10.2) mg/dl Total Bilirubin 0.6 (0.2-1.0) mg/dL AST 23 (10-42) IU/L ALT 19 (10-60) IU/L Alkaline Phosphatase 83 (42-121) IU/L Troponin I < 0.02 (0.00-0.02) ng/ml Total Protein 7.0 (6.7-8.2) g/dl Albumin 3.5 (3.2-5.5) g/dl Globulin 3.5 Albumin/Globulin Ratio 1.00 Meds: Medications Discontinued Medications Generic Name Dose Route Start Last Admin Trade Name Freq PRN Reason Stop Dose Admin Al Hydroxide/Mg Hydroxide 30 ml 03/06/17 10:03 03/06/17 10:10 Gi Cocktail PO 03/06/17 10:04 30 ml ONETIME ONE Administration Sodium Chloride 10 ml 03/06/17 09:12 03/06/17 09:34 Saline Flush FLUSH 10 ml ASDIRECTED PRN Administration Keep Vein Open - Radiology Interpretation Free Text/Narrative:: Portable chest xray: See rad report Departure - Departure Time of Disposition: 11:15 Disposition: Home, Self-Care 01 Condition: Good Clinical Impression: Gastroesophageal reflux disease Qualifiers: Esophagitis presence: esophagitis presence not specified Qualified Code(s): K21.9 - Gastro-esophageal reflux disease without esophagitis Instructions: Esophageal Spasm, Nonspecific Chest Pain, [id number], Gastroesophageal Reflux Disease, Adult Referrals: Pennie Field [Primary Care Provider] - Forms: ED Department Discharge Additional Instructions: Rx: Carafate Follow up with your primary care facility Drink plenty of fluids. - My Orders Last 24 Hours: My Active Orders 03/06/17 09:12 EKG Documentation Completion [RC] STAT Peripheral IV Insertion Adult [OM.PC] Stat 03/06/17 09:13 Peripheral IV Care [RC] . DIRECTED - Assessment/Plan Last 24 Hours: My Active Orders 03/06/17 09:12 EKG Documentation Completion [RC] STAT Peripheral IV Insertion Adult [OM.PC] Stat 03/06/17 09:13 Peripheral IV Care [RC] . DIRECTED
--- NOTE | 2017-03-06 09:48 | CR ---
Clinical history: 56-year-old female complaining of chest pain. Interpretation: Reasonably good inspiratory effort morbidly obese patient with chronic lingular fibro sis. Normal cardiac silhouette for technique and inspiration unchanged since 30 October 2014 exam. No new cephalization of flow, signs of alveolar edema or dependent pleural fluid accumulation. No lung mass, hilar lymphadenopathy, focal lobar pneumonia or atelectasis/collapse. No pneumothorax. CONCLUSION: No acute new cardiopulmonary abnormality.
[2017-03-06 09:54] LABS: CHLORIDE,CL 100 mmol/L (101-111); SODIUM,NA 139 mmol/L (135-145)
[2017-03-06] MEDS ORDERED: GI Cocktail Oral Solution 30 ML PO ONE (10:03)
[2017-03-06 10:42] VITALS: BP 121/66
--- NOTE | 2017-03-07 09:31 | EKG ---
03/06/2017- SOREN BOYD - Miguel A 12-lead EKG shows normal sinus rhythm with sinus bradycardia. No significant ST elevation or ST depression noted on this 12-lead EKG. Nonspecific ST-T wave changes noted on lead V2, V3. [facility] /[id number]
== END 2017-03-06 11:32 | disposition home or self-care (01) ==
LOC: DL.ED 08:59
DX: K21.9 Gastro-esophageal reflux disease without esophagitis (principal); E78.00 Pure hypercholesterolemia, unspecified; I10 Essential (primary) hypertension; J44.9 Chronic obstructive pulmonary disease, unspecified; E66.9 Obesity, unspecified; F32.9 Major depressive disorder, single episode, unspecified; Z91.048 Other nonmedicinal substance allergy status; Z79.899 Other long term (current) drug therapy; Z79.82 Long term (current) use of aspirin
CPT/HCPCS: 36415; 71010; 80053; 84484; 85025; 93005; 99285; A9270; J7050

== ENCOUNTER 2017-06-14 14:10 | Inpatient (IN) | payer BC ==
[2017-06-14] MEDS ORDERED: Albuterol/Ipratropium 3.0-0.5 MG/3 ML Neb Soln NEB ONE (15:31)
[2017-06-14] MEDS ORDERED: Sodium Chloride 0.9% 1,000 ML IV ONE (15:38)
[2017-06-14] MEDS ORDERED: Acetaminophen 325 MG Tab PO ONE (15:39)
[2017-06-14] MEDS: Sodium Chloride 0.9% 10 ML Syringe FLUSH PRN ×2 (15:47→20:32)
[2017-06-14 16:16] LABS: ANION GAP 16.9; CHLORIDE,CL 102 mmol/L (101-111); SODIUM,NA 137 mmol/L (135-145)
[2017-06-14] MEDS ORDERED: methylPREDNISolone Sodium Succinate 125 MG/2 ML SDV IVPUSH ONE (16:18)
--- NOTE | 2017-06-14 16:19 | CR ---
Clinical history: 57-year-old female chest pain. Interpretation: Reasonable inspiratory effort this morbidly obese female with chronic pleural parench ymal scarring left base. No increase in heart size, new cephalization of vascular flow, signs of alveolar edema or dependent p leural effusion when compared to 06 March 2017 exam. No new lung mass, hilar lymphadenopathy or focal lobar pneumonia. CONCLUSION: No acute new cardiopulmonary abnormality.
[2017-06-14] MEDS ORDERED: Nitroglycerin 0.4 MG Tab.SL SL PRN (17:46)
[2017-06-14] MEDS ORDERED: Sodium Chloride 0.9% 10 ML Syringe FLUSH PRN (17:51)
[2017-06-14] MEDS ORDERED: Ondansetron 4 MG Tab.DIS PO PRN (17:51)
--- NOTE | 2017-06-14 18:05 | PCM.HP ---
H&P History of Present Illness - General Date of Service: 06/14/17 Admit Problem/Dx: Admission Diagnosis/Problem Admission Diagnosis/Problem Shortness of breath Source of Information: Patient - History of Present Illness Initial Comments - Free Text/Narative: The patient is a 57-year-old lady with a history of coronary artery disease, pericardial effusion, pulmonary embolism currently off anticoagulation. She is morbidly obese. She presented with shortness of breath to the clinic was noted to have low oxygen saturation, fever and was sent to the emergency room. She was noted to have wheezing, fever. She denies increased lower extremity edema, no up pain, no urinary burning. The patient noticed a fever shortness of breath since 13 June. The patient's is coughing but had no fever. He has been a smoker. She has quit years ago. Lower Back Pain Score (Numeric/FACES): 5 - Related Data Allergies/Adverse Reactions: Allergies Allergy/AdvReac Type Severity Reaction Status Date / Time dorsa Allergy Intermediate Hives Uncoded 06/14/17 17:50 Home Medications: Home Meds Aspirin [Gunjan Chewable Aspirin] 81 mg PO DAILY 07/25/13 [History] Atenolol [Tenormin] 25 mg PO DAILY 07/25/13 [History] Calcium Carbonate [Calcium] 500 mg PO BID 07/25/13 [History] Escitalopram [Lexapro] 20 mg PO DAILY 07/25/13 [History] Furosemide 20 mg PO BID 07/25/13 [History] Gabapentin [Neurontin] 100 mg PO BEDTIME 07/25/13 [History] Magnesium 250 mg PO DAILY 07/25/13 [History] Pantoprazole [ProTONIX Granules] 40 mg PO DAILY 07/25/13 [History] atorvaSTATin [Lipitor] 20 mg PO BEDTIME 07/25/13 [History] Acetaminophen [Mapap] 325 mg PO ASDIRECTED PRN 10/23/16 [History] Albuterol [Proair HFA] 8.5 gm INH ASDIRECTED PRN 10/23/16 [History] Beclomethasone Dipropionate [Qvar] 8.7 gm IH BID 10/23/16 [History] Cetirizine [ZyrTEC] 10 mg PO BEDTIME PRN 10/23/16 [History] Cholecalciferol (Vitamin D3) [Vitamin D3] 1,000 unit PO DAILY 10/23/16 [History] Ipratropium [Atrovent] 0.5 mg INH ASDIRECTED PRN 10/23/16 [History] Nitroglycerin [Nitrostat] 0.4 mg BUCCAL DAILY PRN 10/23/16 [History] Zolpidem [Ambien] 10 mg PO ASDIRECTED PRN 10/23/16 [History] Past Medical History HEENT History: Reports: Impaired Vision Other HEENT History: Sees well with glasses Cardiovascular History: Reports: Blood Clots/VTE/DVT, High Cholesterol, Hypertension, Other (See Below) Other Cardiovascular History: Hx of fluid on the heart May 2012. Stent was placed , PE Respiratory History: Reports: Asthma, COPD, PE, Sleep Apnea, Other (See Below) Other Respiratory History: sleep apnea machine. Gastrointestinal History: Reports: GERD Genitourinary History: Reports: None [employer] FLOWERS History: Reports: Musculoskeletal History: Reports: Other (See Below) Other Musculoskeletal History: Ankle fracture October 2012, foot surgery Neurological History: Reports: Neuropathy, Peripheral Psychiatric History: Reports: Depression, Panic Attack Endocrine/Metabolic History: Reports: Obesity/BMI 30+ Hematologic History: Reports: Blood Transfusion(s) Immunologic History: Reports: None Oncologic (Cancer) History: Reports: None Dermatologic History: Reports: Eczema - Infectious Disease History Infectious Disease History: Reports: None - Past Surgical History Head Surgeries/Procedures: Reports: None Cardiovascular Surgical History: Reports: Coronary Artery Stent GI Surgical History: Reports: Appendectomy, Cholecystectomy, Hernia Repair/Other , Other (See Below) Other GI Surgeries/Procedures: umbilical surg. Hernia. Social & Family History - Family History Family Medical History: Noncontributory Psychiatric: Reports: Depression - Tobacco Use Smoking Status *Q: Former Smoker Years of Tobacco use: 30 Used Tobacco, but Quit: Yes Month Tobacco Last Used: ? Second Hand Smoke Exposure: No - Caffeine Use Caffeine Use: Reports: Soda Other Caffeine Use: 2 cups - Alcohol Use Days Per Week of Alcohol Use: 0 - Recreational Drug Use Recreational Drug Use: No H&P Review of Systems - Review of Systems: Review Of Systems: See Below General: Reports: Fever, Chills, Malaise Pulmonary: Reports: Shortness of Breath, Wheezing Cardiovascular: Denies: Chest Pain Gastrointestinal: Denies: Abdominal Pain Genitourinary: Denies: Dysuria Psychiatric: Denies: Confusion Exam - Exam Exam: See Below - Vital Signs Vital Signs: Last Vital Signs Temp 39.6 C H 06/14/17 16:39 Pulse 90 06/14/17 15:40 Resp 26 H 06/14/17 15:36 BP 129/61 06/14/17 15:36 Pulse Ox 90 L 06/14/17 15:36 Weight: 166.922 kg - Exam Quality Assessment: No: Supplemental Oxygen General: Alert, Oriented HEENT: EOMI Neck: Supple Lungs: Normal Respiratory Effort, Wheezing (Mild bilateral) GI/Abdominal Exam: Normal Bowel Sounds, Soft, Non-Tender, Other (Morbidly obese) Extremities: No Pedal Edema - Patient Data Result Diagrams: 06/14/17 15:47 06/14/17 15:47 *Q Meaningful Use (ADM) - VTE *Q VTE Criteria *Q: - Stroke *Q Stroke Criteria *Q: - AMI *Q AMI Criteria *Q: - Problem List (1) Shortness of breath SNOMED Code(s): 874386417 ICD Code: R06.02 - SHORTNESS OF BREATH Status: Acute Current Visit: Yes (2) UTI (lower urinary tract infection) SNOMED Code(s): 2339486 ICD Code: N39.0 - URINARY TRACT INFECTION, SITE NOT SPECIFIED Status: Acute Current Visit: No Problem List Initiated/Reviewed/Updated: Yes Orders Last 24hrs: Active Orders 24 hr Category Date Time Status Patient Status [ADT] Routine ADT 06/14/17 17:51 Ordered Antiembolic Devices [RC] PER UNIT ROUTINE Care 06/14/17 17:54 Ordered Oxygen Therapy [RC] PRN Care 06/14/17 17:51 Ordered RT Aerosol Therapy [RC] ASDIRECTED Care 06/14/17 17:48 Ordered Up With Assistance [RC] ASDIRECTED Care 06/14/17 17:51 Ordered VTE/DVT Education [RC] PER UNIT ROUTINE Care 06/14/17 17:51 Ordered Vital Signs [RC] Q4H Care 06/14/17 17:51 Ordered 2 Gram Sodium Diet [DIET] Diet 06/14/17 Breakfast Ordered BASIC METABOLIC PANEL,BMP [CHEM] AM Lab 06/15/17 05:15 Ordered CBC WITH AUTO DIFF [HEME] AM Lab 06/15/17 05:15 Ordered CULTURE SPUTUM + SMEAR [RM] Routine Lab 06/14/17 17:44 Uncollected UA W/MICROSCOPIC [URIN] Routine Lab 06/14/17 17:45 Uncollected Acetaminophen [Tylenol] Med 06/14/17 17:51 Ordered 650 mg PO Q4H PRN Albuterol [Proventil Neb Soln] Med 06/14/17 17:49 Ordered 2.5 mg NEB Q4HRRT PRN Albuterol/Ipratropium [DuoNeb 3.0-0.5 MG/3 ML] Med 06/14/17 23:00 Ordered 3 ml NEB Q8HRRT Aspirin Med 06/15/17 09:00 Ordered 81 mg PO DAILY Atenolol [Tenormin] Med 06/15/17 09:00 Ordered 25 mg PO DAILY Azithromycin [Zithromax] 500 mg Med 06/14/17 17:45 Ordered Sodium Chloride 0.9% [Normal Saline] 250 ml IV Q24H Budesonide [Pulmicort] Med 06/14/17 18:00 Ordered 0.5 mg NEB BIDRT Calcium Carbonate [Calcium] Med 06/14/17 21:00 Ordered 500 mg PO BID Cholecalciferol (Vitamin D3) [Vitamin D3] Med 06/15/17 09:00 Ordered 1,000 unit PO DAILY Escitalopram [Lexapro] Med 06/15/17 09:00 Ordered 20 mg PO DAILY Furosemide [Lasix] Med 06/14/17 21:00 Ordered 20 mg PO BID Gabapentin [Neurontin] Med 06/14/17 21:00 Ordered 100 mg PO BEDTIME Heparin Sodium Med 06/14/17 22:00 Ordered 5,000 units SUBCUT Q8HR Magnesium [Magnesium] Med 06/15/17 09:00 Ordered 250 mg PO DAILY Nitroglycerin [Nitrostat] Med 06/14/17 17:46 Ordered 0.4 mg SL DAILY PRN Ondansetron [Zofran ODT] Med 06/14/17 17:51 Ordered 4 mg PO Q6H PRN Pantoprazole [ProTONIX Granules] Med 06/15/17 09:00 Ordered 40 mg PO DAILY Sodium Chloride 0.9% [Saline Flush] Med 06/14/17 17:51 Ordered 10 ml FLUSH ASDIRECTED PRN Zolpidem Med 06/14/17 17:46 Ordered 10 mg PO ASDIRECTED PRN atorvaSTATin [Lipitor] Med 06/14/17 21:00 Ordered 20 mg PO BEDTIME cefTRIAXone [Rocephin] Med 06/14/17 17:45 Ordered 1 gm IVPUSH Q24H methylPREDNISolone Sod Succ [Solu-MEDROL] Med 06/14/17 23:00 Ordered 40 mg IVPUSH Q8H Saline Lock Insert [OM.PC] Routine Oth 06/14/17 17:51 Ordered Sequential Compression Device [OM.PC] Per Unit Routine Oth 06/14/17 17:53 Ordered Resuscitation Status Routine Resus Stat 06/14/17 17:51 Ordered Medication Orders Acetaminophen (Tylenol) 650 mg PO Q4H PRN PRN Reason: Pain (Mild 1-3)/fever Albuterol (Proventil Neb Soln) 2.5 mg NEB Q4HRRT PRN PRN Reason: sob Albuterol/Ipratropium (Duoneb 3.0-0.5 Mg/3 Ml) 3 ml NEB Q8HRRT [facility] Aspirin (Aspirin) 81 mg PO DAILY [facility] Atenolol (Tenormin) 25 mg PO DAILY [facility] Atorvastatin Calcium (Lipitor) 20 mg PO BEDTIME [facility] Budesonide (Pulmicort) 0.5 mg NEB BIDRT [facility] Ceftriaxone Sodium (Rocephin) 1 gm IVPUSH Q24H [facility] Furosemide (Lasix) 20 mg PO BID [facility] Gabapentin (Neurontin) 100 mg PO BEDTIME [facility] Heparin Sodium (Porcine) (Heparin Sodium) 5,000 units SUBCUT Q8HR [facility] Azithromycin 500 mg/ Sodium (Chloride) 250 mls @ 250 mls/hr IV Q24H [facility] Methylprednisolone Sodium Succinate (Solu-Medrol) 40 mg IVPUSH Q8H [facility] Nitroglycerin (Nitrostat) 0.4 mg SL DAILY PRN PRN Reason: Chest Pain Non-Formulary Medication (Calcium Carbonate [Calcium]) 500 mg PO BID [facility] Non-Formulary Medication (Cholecalciferol (Vitamin D3) [Vitamin D3]) 1,000 unit PO DAILY [facility] Non-Formulary Medication (Escitalopram [Lexapro]) 20 mg PO DAILY [facility] Non-Formulary Medication (Magnesium [Magnesium]) 250 mg PO DAILY [facility] Non-Formulary Medication (Pantoprazole [Protonix Granules]) 40 mg PO DAILY [facility] Non-Formulary Medication (Zolpidem) 10 mg PO ASDIRECTED PRN PRN Reason: Sleep Ondansetron HCl (Zofran Odt) 4 mg PO Q6H PRN PRN Reason: nausea, able to take PO Sodium Chloride (Saline Flush) 10 ml FLUSH ASDIRECTED PRN PRN Reason: Keep Vein Open Last Admin: 06/14/17 15:47 Dose: 10 ml Sodium Chloride (Saline Flush) 10 ml FLUSH ASDIRECTED PRN PRN Reason: Keep Vein Open Assessment/Plan Comment:: The patient is a 57-year-old lady who is morbidly obese, has COPD on nebulizers , history of DVT off anticoagulation, The patient presented with cough, shortness of breath, hypoxemia and wheezing. She was noted to have a fever up to 103 #1 febrile illness This might relate to upper airway infection. Influenza swab was negative at the clinic Obtain sputum culture, blood culture Treat empirically with azithromycin and Rocephin. #2 the patient appears to have urinary tract infection Will send urine culture Treat with Rocephin #3 acute hypoxemic respiratory failure Monitor oxygen need and supplement as needed #4 acute COPD exacerbation Treat with Pulmicort, scheduled DuoNeb use when necessary albuterol as needed Start IV Solu-Medrol and tapered at #5 coronary artery disease Continue aspirin, atenolol, Lipitor #6 the patient has a history of pulmonary embolism I do not think the patient currently has an acute PE Use subcutaneous heparin for DVT prophylaxis
[2017-06-14] MEDS: cefTRIAXone 1 GM Vial IVPUSH SCH (18:24)
[2017-06-14] MEDS: Azithromycin 500 MG in Sodium Chloride 0.9% 250 ML IV SCH (18:25)
[2017-06-14] MEDS: Budesonide 0.5 MG/2 ML Neb Susp NEB SCH (18:25)
[2017-06-14] MEDS ORDERED: Zolpidem 5 MG Tab PO PRN (20:00)
[2017-06-14] MEDS: atorvaSTATin 20 MG Tab PO SCH (20:35)
[2017-06-14] MEDS: Calcium Carbonate 500 MG Tab.Chew PO SCH (20:35)
[2017-06-14] MEDS: Furosemide 20 MG Tab PO SCH (20:35)
[2017-06-14] MEDS: Gabapentin 100 MG Cap PO SCH (20:35)
[2017-06-14] MEDS: Heparin Sodium 5,000 Units/ML Vial SUBCUT SCH (22:34)
[2017-06-14] MEDS: Albuterol/Ipratropium 3.0-0.5 MG/3 ML Neb Soln NEB SCH (22:34)
[2017-06-15] MEDS: Sodium Chloride 0.9% 10 ML Syringe FLUSH PRN ×2 (00:49→20:51)
[2017-06-15] MEDS: methylPREDNISolone Sodium Succinate 40 MG/1 ML SDV IVPUSH SCH ×4 (00:49→23:53)
[2017-06-15] MEDS: Pantoprazole 40 MG Tab.CR PO SCH (05:46)
[2017-06-15] MEDS: Heparin Sodium 5,000 Units/ML Vial SUBCUT SCH ×3 (05:46→22:06)
[2017-06-15] MEDS: Acetaminophen 325 MG Tab PO PRN (05:51)
[2017-06-15] MEDS: Albuterol 0.083% 2.5 MG/3 ML Neb Soln NEB PRN ×3 (05:52→20:46)
[2017-06-15 06:51] LABS: ANION GAP 15.7; CHLORIDE,CL 102 mmol/L (101-111); SODIUM,NA 138 mmol/L (135-145)
[2017-06-15] MEDS: Budesonide 0.5 MG/2 ML Neb Susp NEB SCH ×2 (07:04→18:37)
[2017-06-15] MEDS: Albuterol/Ipratropium 3.0-0.5 MG/3 ML Neb Soln NEB SCH ×3 (07:04→23:53)
[2017-06-15] MEDS: Furosemide 20 MG Tab PO SCH ×2 (07:48→20:44)
[2017-06-15] MEDS: Aspirin 81 MG Tab.Chew PO SCH (08:24)
[2017-06-15] MEDS: Escitalopram 10 MG Tab PO SCH (08:25)
[2017-06-15] MEDS: Atenolol 25 MG Tab PO SCH (08:25)
[2017-06-15] MEDS: Cholecalciferol (Vitamin D3) 400 Unit Tab PO SCH (08:26)
[2017-06-15] MEDS: Calcium Carbonate 500 MG Tab.Chew PO SCH ×2 (08:26→20:45)
--- NOTE | 2017-06-15 10:32 | PCM.PN ---
- General Info Date of Service: 06/15/17 Admission Dx/Problem (Free Text): Admission Diagnosis/Problem Admission Diagnosis/Problem Shortness of breath Subjective Update: She feels that the shortness of breath still present but improved. No associated chest pain. No urinary burning No abdominal pain. Slept in chair. - Patient Data Vitals - Most Recent: Last Vital Signs Temp 36.3 C 06/15/17 07:44 Pulse 98 06/15/17 08:25 Resp 20 06/15/17 07:44 BP 103/48 L 06/15/17 08:25 Pulse Ox 94 L 06/15/17 07:44 Weight - Most Recent: 167.557 kg I&O - Last 24 Hours: Intake & Output 06/14/17 06/15/17 06/15/17 22:59 06:59 14:59 Intake Total 1252 900 200 Output Total 950 1100 Balance 302 -200 200 Lab Results Last 24 Hours: Laboratory Results - last 24 hr 06/15/17 06/15/17 Range/Units 06:07 06:07 WBC 6.1 (5.0-10.0) 10^3/uL RBC 4.43 (4.2-5.4) 10^6/uL Hgb 12.6 (12.0-16.0) g/dL Hct 39.9 (37.0-47.0) % MCV 90.1 (80-100) fL MCH 28.4 (27.0-34.0) pg MCHC 31.6 L (33.0-35.0) g/dL Plt Count 281 (150-450) 10^3/uL Neut % (Auto) 80.9 H (42.2-75.2) % Lymph % (Auto) 17.5 L (20.5-50.1) % [place] % (Auto) 1.6 L (2-8) % Eos % (Auto) 0.0 L (1.0-3.0) % Baso % (Auto) 0.0 (0.0-1.0) % Sodium 138 (135-145) mmol/L Potassium 3.7 (3.6-5.0) mmol/L Chloride 102 (101-111) mmol/L Carbon Dioxide 24.0 (21.0-31.0) mmol/L Anion Gap 15.7 BUN 11 (7-18) mg/dL Creatinine 0.8 (0.6-1.3) mg/dL Est Cr Clr Drug Dosing 65.73 mL/min Estimated GFR (MDRD) > 60 Glucose 175 H (74-105) mg/dL Calcium 8.9 (8.4-10.2) mg/dl Med Orders - Current: Current Medications Acetaminophen (Tylenol) 650 mg PO Q4H PRN PRN Reason: Pain (Mild 1-3)/fever Last Admin: 06/15/17 05:51 Dose: 650 mg Albuterol (Proventil Neb Soln) 2.5 mg NEB Q4HRRT PRN PRN Reason: sob Last Admin: 06/15/17 05:52 Dose: 2.5 mg Albuterol/Ipratropium (Duoneb 3.0-0.5 Mg/3 Ml) 3 ml NEB Q8HRRT [facility] Last Admin: 06/15/17 07:04 Dose: 3 ml Aspirin (Aspirin) 81 mg PO DAILY [facility] Last Admin: 06/15/17 08:24 Dose: 81 mg Atenolol (Tenormin) 25 mg PO DAILY [facility] Last Admin: 06/15/17 08:25 Dose: 25 mg Atorvastatin Calcium (Lipitor) 20 mg PO BEDTIME [facility] Last Admin: 06/14/17 20:35 Dose: 20 mg Budesonide (Pulmicort) 0.5 mg NEB BIDRT [facility] Last Admin: 06/15/17 07:04 Dose: 0.5 mg Calcium Carbonate/Glycine (Tums) 500 mg PO BID [facility] Last Admin: 06/15/17 08:26 Dose: 500 mg Ceftriaxone Sodium (Rocephin) 1 gm IVPUSH Q24H [facility] Last Admin: 06/14/17 18:24 Dose: 1 gm Cholecalciferol (Vitamin D3) 1,000 units PO DAILY [facility] Last Admin: 06/15/17 08:26 Dose: 1,000 units Escitalopram Oxalate (Lexapro) 20 mg PO DAILY [facility] Last Admin: 06/15/17 08:25 Dose: 20 mg Furosemide (Lasix) 20 mg PO BID@0800,2000 [facility] Last Admin: 06/15/17 07:48 Dose: 20 mg Gabapentin (Neurontin) 100 mg PO BEDTIME [facility] Last Admin: 06/14/17 20:35 Dose: 100 mg Heparin Sodium (Porcine) (Heparin Sodium) 5,000 units SUBCUT Q8HR [facility] Last Admin: 06/15/17 05:46 Dose: 5,000 units Azithromycin 500 mg/ Sodium (Chloride) 250 mls @ 250 mls/hr IV Q24H [facility] Last Admin: 06/14/17 18:25 Dose: 125 mls/hr Magnesium Oxide (Magnesium Oxide) 250 mg PO DAILY [facility] Last Admin: 06/15/17 08:25 Dose: 250 mg Methylprednisolone Sodium Succinate (Solu-Medrol) 40 mg IVPUSH Q8H [facility] Last Admin: 06/15/17 07:49 Dose: 40 mg Nitroglycerin (Nitrostat) 0.4 mg SL DAILY PRN PRN Reason: Chest Pain Ondansetron HCl (Zofran Odt) 4 mg PO Q6H PRN PRN Reason: nausea, able to take PO Pantoprazole Sodium (Protonix) 40 mg PO ACBRK [facility] Last Admin: 06/15/17 05:46 Dose: 40 mg Sodium Chloride (Saline Flush) 10 ml FLUSH ASDIRECTED PRN PRN Reason: Keep Vein Open Last Admin: 06/15/17 00:49 Dose: 10 ml Sodium Chloride (Saline Flush) 10 ml FLUSH ASDIRECTED PRN PRN Reason: Keep Vein Open Zolpidem Tartrate (Ambien) 10 mg PO BEDTIME PRN PRN Reason: Sleep Last Admin: 06/14/17 22:34 Dose: 10 mg Discontinued Medications Acetaminophen (Tylenol) 650 mg PO NOW ONE Stop: 06/14/17 15:40 Last Admin: 06/14/17 15:54 Dose: 650 mg Albuterol/Ipratropium (Duoneb 3.0-0.5 Mg/3 Ml) 3 ml NEB ONETIME ONE Stop: 06/14/17 15:32 Last Admin: 06/14/17 15:39 Dose: 3 ml Sodium Chloride (Normal Saline) 1,000 mls @ 999 mls/hr IV .BOLUS ONE Stop: 06/14/17 16:38 Last Admin: 06/14/17 15:54 Dose: 999 mls/hr Methylprednisolone Sodium Succinate (Solu-Medrol) 125 mg IVPUSH ONETIME ONE Stop: 06/14/17 16:19 Last Admin: 06/14/17 16:29 Dose: 125 mg - Exam General: Alert, Oriented Neck: Supple Lungs: Normal Respiratory Effort, Wheezing GI/Abdominal Exam: Normal Bowel Sounds, Soft, Non-Tender, Other (Morbidly obese) Extremities: No Pedal Edema - Problem List & Annotations (1) Shortness of breath SNOMED Code(s): 361911738 Code(s): R06.02 - SHORTNESS OF BREATH Status: Acute Current Visit: Yes (2) UTI (lower urinary tract infection) SNOMED Code(s): 2830773 Code(s): N39.0 - URINARY TRACT INFECTION, SITE NOT SPECIFIED Status: Acute Current Visit: No - Problem List Review Problem List Initiated/Reviewed/Updated: Yes - My Orders Last 24 Hours: My Active Orders 06/14/17 16:20 CULTURE URINE [RM] Routine - Plan Plan:: The patient is a 57-year-old lady who is morbidly obese, has COPD on nebulizers , history of DVT off anticoagulation, The patient presented with cough, shortness of breath, hypoxemia and wheezing. She was noted to have a fever up to 103 #1 febrile illness This might relate to upper airway infection. Influenza swab was negative at the clinic pending sputum culture pending blood culture Treat empirically with azithromycin and Rocephin. #2 the patient appears to have urinary tract infection pending urine culture Treat with Rocephin #3 acute hypoxemic respiratory failure Monitor oxygen need and supplement as needed #4 acute COPD exacerbation Treat with Pulmicort, scheduled DuoNeb use when necessary albuterol as needed continue IV Solu-Medrol and tapered at #5 coronary artery disease Continue aspirin, atenolol, Lipitor #6 the patient has a history of pulmonary embolism I do not think the patient currently has an acute PE Use subcutaneous heparin for DVT prophylaxis
[2017-06-15] MEDS: cefTRIAXone 1 GM Vial IVPUSH SCH (17:40)
[2017-06-15] MEDS: Azithromycin 500 MG in Sodium Chloride 0.9% 250 ML IV SCH (18:47)
[2017-06-15] MEDS: atorvaSTATin 20 MG Tab PO SCH (20:45)
[2017-06-15] MEDS: Gabapentin 100 MG Cap PO SCH (20:45)
[2017-06-16] MEDS: Pantoprazole 40 MG Tab.CR PO SCH (05:43)
[2017-06-16] MEDS: Albuterol 0.083% 2.5 MG/3 ML Neb Soln NEB PRN ×2 (05:43→13:11)
[2017-06-16] MEDS: Heparin Sodium 5,000 Units/ML Vial SUBCUT SCH ×3 (05:46→21:06)
[2017-06-16 06:54] LABS: ANION GAP 15.1; CHLORIDE,CL 103 mmol/L (101-111); SODIUM,NA 139 mmol/L (135-145)
[2017-06-16] MEDS: Furosemide 20 MG Tab PO SCH ×2 (08:24→21:06)
[2017-06-16] MEDS: Calcium Carbonate 500 MG Tab.Chew PO SCH ×2 (08:25→21:07)
[2017-06-16] MEDS: Atenolol 25 MG Tab PO SCH (08:25)
[2017-06-16] MEDS: Escitalopram 10 MG Tab PO SCH (08:25)
[2017-06-16] MEDS: Aspirin 81 MG Tab.Chew PO SCH (08:25)
[2017-06-16] MEDS: methylPREDNISolone Sodium Succinate 40 MG/1 ML SDV IVPUSH SCH ×3 (08:25→23:00)
[2017-06-16] MEDS: Cholecalciferol (Vitamin D3) 400 Unit Tab PO SCH (08:26)
[2017-06-16] MEDS: Albuterol/Ipratropium 3.0-0.5 MG/3 ML Neb Soln NEB SCH ×3 (08:37→22:57)
[2017-06-16] MEDS: Budesonide 0.5 MG/2 ML Neb Susp NEB SCH ×2 (08:37→17:43)
--- NOTE | 2017-06-16 12:17 | PCM.PN ---
- General Info Date of Service: 06/16/17 Admission Dx/Problem (Free Text): Admission Diagnosis/Problem Admission Diagnosis/Problem Shortness of breath Subjective Update: She feels that the shortness of breath is improved. less wheezing No associated chest pain. No urinary burning No abdominal pain. Functional Status: Reports: Pain Controlled, Tolerating Diet - Review of Systems General: Reports: Weakness. Denies: Fever Pulmonary: Reports: Shortness of Breath (improved) Cardiovascular: Denies: Chest Pain Gastrointestinal: Denies: Abdominal Pain Neurological: Denies: Confusion - Patient Data Vitals - Most Recent: Last Vital Signs Temp 36.2 C 06/16/17 11:36 Pulse 68 06/16/17 11:36 Resp 20 06/16/17 08:00 BP 111/61 06/16/17 11:36 Pulse Ox 90 L 06/16/17 08:00 Weight - Most Recent: 167.557 kg I&O - Last 24 Hours: Intake & Output 06/15/17 06/16/17 06/16/17 22:59 06:59 14:59 Intake Total 1497 650 320 Output Total 1600 Balance -103 650 320 Lab Results Last 24 Hours: Laboratory Results - last 24 hr 06/16/17 06/16/17 Range/Units 06:06 06:06 WBC 9.2 (5.0-10.0) 10^3/uL RBC 4.30 (4.2-5.4) 10^6/uL Hgb 12.4 (12.0-16.0) g/dL Hct 39.0 (37.0-47.0) % MCV 90.7 (80-100) fL MCH 28.8 (27.0-34.0) pg MCHC 31.8 L (33.0-35.0) g/dL Plt Count 297 (150-450) 10^3/uL Neut % (Auto) 79.5 H (42.2-75.2) % Lymph % (Auto) 13.4 L (20.5-50.1) % [place] % (Auto) 7.0 (2-8) % Eos % (Auto) 0.0 L (1.0-3.0) % Baso % (Auto) 0.1 (0.0-1.0) % Sodium 139 (135-145) mmol/L Potassium 4.1 (3.6-5.0) mmol/L Chloride 103 (101-111) mmol/L Carbon Dioxide 25.0 (21.0-31.0) mmol/L Anion Gap 15.1 BUN 18 (7-18) mg/dL Creatinine 0.9 (0.6-1.3) mg/dL Est Cr Clr Drug Dosing 58.42 mL/min Estimated GFR (MDRD) > 60 Glucose 147 H (74-105) mg/dL Calcium 9.1 (8.4-10.2) mg/dl [facility] Results Last 24 Hours: Microbiology 06/15/17 12:50 Gram Stain - Final Sputum - Expectorated Sputum Culture - Preliminary Normal [facility] Med Orders - Current: Current Medications Acetaminophen (Tylenol) 650 mg PO Q4H PRN PRN Reason: Pain (Mild 1-3)/fever Last Admin: 06/15/17 05:51 Dose: 650 mg Albuterol (Proventil Neb Soln) 2.5 mg NEB Q4HRRT PRN PRN Reason: sob Last Admin: 06/16/17 05:43 Dose: 2.5 mg Albuterol/Ipratropium (Duoneb 3.0-0.5 Mg/3 Ml) 3 ml NEB Q8HRRT [facility] Last Admin: 06/16/17 08:37 Dose: 3 ml Aspirin (Aspirin) 81 mg PO DAILY [facility] Last Admin: 06/16/17 08:25 Dose: 81 mg Atenolol (Tenormin) 25 mg PO DAILY [facility] Last Admin: 06/16/17 08:25 Dose: 25 mg Atorvastatin Calcium (Lipitor) 20 mg PO BEDTIME [facility] Last Admin: 06/15/17 20:45 Dose: 20 mg Budesonide (Pulmicort) 0.5 mg NEB BIDRT [facility] Last Admin: 06/16/17 08:37 Dose: 0.5 mg Calcium Carbonate/Glycine (Tums) 500 mg PO BID [facility] Last Admin: 06/16/17 08:25 Dose: 500 mg Ceftriaxone Sodium (Rocephin) 1 gm IVPUSH Q24H [facility] Last Admin: 06/15/17 17:40 Dose: 1 gm Cholecalciferol (Vitamin D3) 1,000 units PO DAILY [facility] Last Admin: 06/16/17 08:26 Dose: 1,000 units Escitalopram Oxalate (Lexapro) 20 mg PO DAILY [facility] Last Admin: 06/16/17 08:25 Dose: 20 mg Furosemide (Lasix) 20 mg PO BID@0800,2000 [facility] Last Admin: 06/16/17 08:24 Dose: 20 mg Gabapentin (Neurontin) 100 mg PO BEDTIME [facility] Last Admin: 06/15/17 20:45 Dose: 100 mg Heparin Sodium (Porcine) (Heparin Sodium) 5,000 units SUBCUT Q8HR [facility] Last Admin: 06/16/17 05:46 Dose: 5,000 units Azithromycin 500 mg/ Sodium (Chloride) 250 mls @ 250 mls/hr IV Q24H [facility] Last Admin: 06/15/17 18:47 Dose: 125 mls/hr Magnesium Oxide (Magnesium Oxide) 250 mg PO DAILY [facility] Last Admin: 06/16/17 08:25 Dose: 250 mg Methylprednisolone Sodium Succinate (Solu-Medrol) 40 mg IVPUSH Q8H [facility] Last Admin: 06/16/17 08:25 Dose: 40 mg Nitroglycerin (Nitrostat) 0.4 mg SL DAILY PRN PRN Reason: Chest Pain Ondansetron HCl (Zofran Odt) 4 mg PO Q6H PRN PRN Reason: nausea, able to take PO Pantoprazole Sodium (Protonix) 40 mg PO ACBRK [facility] Last Admin: 06/16/17 05:43 Dose: 40 mg Sodium Chloride (Saline Flush) 10 ml FLUSH ASDIRECTED PRN PRN Reason: Keep Vein Open Last Admin: 06/15/17 20:51 Dose: 10 ml Sodium Chloride (Saline Flush) 10 ml FLUSH ASDIRECTED PRN PRN Reason: Keep Vein Open Zolpidem Tartrate (Ambien) 10 mg PO BEDTIME PRN PRN Reason: Sleep Last Admin: 06/14/17 22:34 Dose: 10 mg Discontinued Medications Acetaminophen (Tylenol) 650 mg PO NOW ONE Stop: 06/14/17 15:40 Last Admin: 06/14/17 15:54 Dose: 650 mg Albuterol/Ipratropium (Duoneb 3.0-0.5 Mg/3 Ml) 3 ml NEB ONETIME ONE Stop: 06/14/17 15:32 Last Admin: 06/14/17 15:39 Dose: 3 ml Sodium Chloride (Normal Saline) 1,000 mls @ 999 mls/hr IV .BOLUS ONE Stop: 06/14/17 16:38 Last Admin: 06/14/17 15:54 Dose: 999 mls/hr Methylprednisolone Sodium Succinate (Solu-Medrol) 125 mg IVPUSH ONETIME ONE Stop: 06/14/17 16:19 Last Admin: 06/14/17 16:29 Dose: 125 mg - Exam General: Alert, Oriented Neck: Supple Lungs: Normal Respiratory Effort, Wheezing (mild r. sided) GI/Abdominal Exam: Normal Bowel Sounds, Soft, Non-Tender, Other (morbidly obese) Extremities: No Pedal Edema Skin: Warm, Dry Neurological: No New Focal Deficit Psy/Mental Status: Alert, Normal Affect, Normal Mood - Problem List & Annotations (1) Shortness of breath SNOMED Code(s): 040100494 Code(s): R06.02 - SHORTNESS OF BREATH Status: Acute Current Visit: Yes (2) UTI (lower urinary tract infection) SNOMED Code(s): 4044781 Code(s): N39.0 - URINARY TRACT INFECTION, SITE NOT SPECIFIED Status: Acute Current Visit: No - Problem List Review Problem List Initiated/Reviewed/Updated: Yes - Plan Plan:: The patient is a 57-year-old lady who is morbidly obese, has COPD on nebulizers , history of DVT off anticoagulation, The patient presented with cough, shortness of breath, hypoxemia and wheezing. She was noted to have a fever up to 103 #1 febrile illness This might relate to upper airway infection. Influenza swab was negative at the clinic pending sputum culture pending blood culture Treat empirically with azithromycin and Rocephin. #2 the patient appears to have urinary tract infection urine culture: E coli, sensitive to ceftriaxone/cefazolin, resistant to cipro/ levo Treat with Rocephin #3 acute hypoxemic respiratory failure now off oxygen Monitor oxygen need and supplement as needed #4 acute COPD exacerbation Treat with Pulmicort, scheduled DuoNeb use albuterol as needed continue IV Solu-Medrol and tapered slowly #5 coronary artery disease Continue aspirin, atenolol, Lipitor #6 the patient has a history of pulmonary embolism I do not think the patient currently has an acute PE Use subcutaneous heparin for DVT prophylaxis
[2017-06-16] MEDS: cefTRIAXone 1 GM Vial IVPUSH SCH (17:37)
[2017-06-16] MEDS: Azithromycin 500 MG in Sodium Chloride 0.9% 250 ML IV SCH (18:28)
--- NOTE | 2017-06-16 20:55 | EDM.PDOC ---
Scribed by Annamaria Cordon 06/14/17 1709 for Mily Gutierrez NP ED HPI GENERAL MEDICAL PROBLEM - General Chief Complaint: Respiratory Problem Stated Complaint: CAN'T BREATH Time Seen by Provider: 06/14/17 15:22 Source of Information: Reports: Patient, RN, RN Notes Reviewed History Limitations: Reports: No Limitations - History of Present Illness INITIAL COMMENTS - FREE TEXT/NARRATIVE: Patient presents to ER with complaint of dry cough, shortness of breath, and high fevers (103).This began last night at 1999. She was to [facility] today where her 02 sats were low. She has a history of COPD/asthma. She does have neds -DuoNeb at home.She has had no nausea, vomiting or diarrhea. She has chest pain , back pain, pain in shoulder blades, fever and shortness of breath. She is Influenza negative. Onset Date: 06/13/17 Duration: Getting Worse Location: Reports: Chest, Back Quality: Reports: Ache Severity: Severe Improves with: Reports: None Worsens with: Reports: None Associated Symptoms: Reports: No Other Symptoms Lower Back Pain Score (Numeric/FACES): 5 - Related Data Allergies Allergy/AdvReac Type Severity Reaction Status Date / Time dorsa Allergy Hives Uncoded 06/14/17 14:13 Home Meds: Home Meds Aspirin [Gunjan Chewable Aspirin] 81 mg PO DAILY 07/25/13 [History] Atenolol [Tenormin] 25 mg PO DAILY 07/25/13 [History] Calcium Carbonate [Calcium] 500 mg PO BID 07/25/13 [History] Escitalopram [Lexapro] 20 mg PO DAILY 07/25/13 [History] Furosemide 20 mg PO BID 07/25/13 [History] Gabapentin [Neurontin] 100 mg PO BEDTIME 07/25/13 [History] Magnesium 250 mg PO DAILY 07/25/13 [History] Pantoprazole [ProTONIX Granules] 40 mg PO DAILY 07/25/13 [History] atorvaSTATin [Lipitor] 20 mg PO BEDTIME 07/25/13 [History] Acetaminophen [Mapap] 325 mg PO ASDIRECTED PRN 10/23/16 [History] Albuterol [Proair HFA] 8.5 gm INH ASDIRECTED PRN 10/23/16 [History] Beclomethasone Dipropionate [Qvar] 8.7 gm IH BID 10/23/16 [History] Cetirizine [ZyrTEC] 10 mg PO BEDTIME PRN 10/23/16 [History] Cholecalciferol (Vitamin D3) [Vitamin D3] 1,000 unit PO DAILY 10/23/16 [History] Ipratropium [Atrovent] 0.5 mg INH ASDIRECTED PRN 10/23/16 [History] Nitroglycerin [Nitrostat] 0.4 mg BUCCAL DAILY PRN 10/23/16 [History] Zolpidem [Ambien] 10 mg PO ASDIRECTED PRN 10/23/16 [History] Past Medical History HEENT History: Reports: Impaired Vision Other HEENT History: Sees well with glasses Cardiovascular History: Reports: Blood Clots/VTE/DVT, High Cholesterol, Hypertension, Other (See Below) Other Cardiovascular History: Hx of fluid on the heart May 2012. Stent was placed , PE Respiratory History: Reports: Asthma, COPD, PE, Sleep Apnea, Other (See Below) Other Respiratory History: sleep apnea machine. 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: Musculoskeletal History: Reports: Other (See Below) Other Musculoskeletal History: Ankle fracture October 2012, foot surgery Neurological History: Reports: Neuropathy, Peripheral Psychiatric History: Reports: Depression, Panic Attack Endocrine/Metabolic History: Reports: Obesity/BMI 30+ Hematologic History: Reports: Blood Transfusion(s) Immunologic History: Reports: None Oncologic (Cancer) History: Reports: None Dermatologic History: Reports: Eczema - Infectious Disease History Infectious Disease History: Reports: None - Past Surgical History Head Surgeries/Procedures: Reports: None Cardiovascular Surgical History: Reports: Coronary Artery Stent GI Surgical History: Reports: Appendectomy, Cholecystectomy, Hernia Repair/Other , Other (See Below) Other GI Surgeries/Procedures: umbilical surg. Hernia. Social & Family History - Family History Family Medical History: Noncontributory Psychiatric: Reports: Depression - Tobacco Use Smoking Status *Q: Former Smoker Years of Tobacco use: 30 Used Tobacco, but Quit: Yes Month Tobacco Last Used: ? Second Hand Smoke Exposure: No - Caffeine Use Caffeine Use: Reports: Soda Other Caffeine Use: 2 cups - Alcohol Use Days Per Week of Alcohol Use: 0 - Recreational Drug Use Recreational Drug Use: No ED ROS GENERAL - Review of Systems Review Of Systems: ROS reveals no pertinent complaints other than HPI. ED EXAM, GENERAL - Physical Exam Exam: See Below Exam Limited By: No Limitations General Appearance: Other (flushed face) Eye Exam: Bilateral Eye: Normal Inspection Ears: Normal External Exam, Normal Canal, Hearing Grossly Normal, Normal TMs Nose: Normal Inspection, Normal Mucosa, No Blood Throat/Mouth: Normal Inspection, Normal Lips, Normal Teeth, Normal Gums, Normal Oropharynx, Normal Voice, No Airway Compromise Head: Atraumatic, Normocephalic Neck: Normal Inspection, Supple, Non-Tender, Full Range of Motion Respiratory/Chest: Wheezing (inspiratory and expiratory.), Other (decreased lung sounds/air entry.) Cardiovascular: Normal Peripheral Pulses, Regular Rate, Rhythm, No Edema, No Gallop, No JVD, No Murmur, No Rub GI/Abdominal: Normal Bowel Sounds, Soft, Non-Tender, No Organomegaly, No Distention, No Abnormal Bruit, No Mass (Female) Exam: Deferred Rectal (Female) Exam: Deferred Back Exam: Normal Inspection, Full Range of Motion, NT Extremities: Other (decreased range of motion.) Neurological: Alert, Oriented, CN II-XII Intact, Normal Cognition, Normal Gait, Normal Reflexes, No Motor/Sensory Deficits Psychiatric: Normal Affect, Normal Mood Skin Exam: Other (flushed skin) Lymphatic: No Adenopathy EKG INTERPRETATION EKG Date: 06/14/17 Time: 15:25 Rhythm: Other (sinus rhythm) Rate (Beats/Min): 85 EKG Interpretation Comments: Borderline T abnormalities, anterior-lateral leads. Course - Vital Signs Last Recorded V/S: Last Vital Signs Temp 103.3 F H 06/14/17 16:39 Pulse 90 06/14/17 15:40 Resp 26 H 06/14/17 15:36 BP 129/61 06/14/17 15:36 Pulse Ox 90 L 06/14/17 15:36 - Orders/Labs/Meds Orders: Active Orders 24 hr Category Date Time Status EKG Documentation Completion [RC] STAT Care 06/14/17 15:28 Active Peripheral IV Care [RC] . DIRECTED Care 06/14/17 15:29 Active RT Aerosol Therapy [RC] ASDIRECTED Care 06/14/17 15:31 Active CULTURE BLOOD [BC] Stat Lab 06/14/17 15:47 Received CULTURE BLOOD [BC] Stat Lab 06/14/17 16:25 Received UA W/MICROSCOPIC [URIN] Stat Lab 06/14/17 16:20 Received Sodium Chloride 0.9% [Saline Flush] Med 06/14/17 15:28 Active 10 ml FLUSH ASDIRECTED PRN Blood Culture x2 Reflex Set [OM.PC] Stat Oth 06/14/17 15:28 Ordered Peripheral IV Insertion Adult [OM.PC] Stat Oth 06/14/17 15:28 Ordered Medication Orders Sodium Chloride (Saline Flush) 10 ml FLUSH ASDIRECTED PRN PRN Reason: Keep Vein Open Last Admin: 06/14/17 15:47 Dose: 10 ml Labs: Laboratory Tests 06/14/17 06/14/17 06/14/17 Range/Units 15:47 15:47 15:47 WBC 6.6 (5.0-10.0) 10^3/uL RBC 4.70 (4.2-5.4) 10^6/uL Hgb 13.5 (12.0-16.0) g/dL Hct 41.8 (37.0-47.0) % MCV 88.9 (80-100) fL MCH 28.7 (27.0-34.0) pg MCHC 32.3 L (33.0-35.0) g/dL Plt Count 274 (150-450) 10^3/uL Neut % (Auto) 77.1 H (42.2-75.2) % Lymph % (Auto) 11.8 L (20.5-50.1) % [place] % (Auto) 9.7 H (2-8) % Eos % (Auto) 0.9 L (1.0-3.0) % Baso % (Auto) 0.5 (0.0-1.0) % Sodium 137 (135-145) mmol/L Potassium 3.9 (3.6-5.0) mmol/L Chloride 102 (101-111) mmol/L Carbon Dioxide 22.0 (21.0-31.0) mmol/L Anion Gap 16.9 BUN 12 (7-18) mg/dL Creatinine 0.9 (0.6-1.3) mg/dL Est Cr Clr Drug Dosing 58.42 mL/min Estimated GFR (MDRD) > 60 BUN/Creatinine Ratio 13.33 Glucose 104 (74-105) mg/dL Lactic Acid 1.4 (0.5-2.2) mmol/L Calcium 9.1 (8.4-10.2) mg/dl Total Bilirubin 0.8 (0.2-1.0) mg/dL AST 33 (10-42) IU/L ALT 25 (10-60) IU/L Alkaline Phosphatase 101 (42-121) IU/L Troponin I < 0.02 (0.00-0.02) ng/ml Total Protein 7.3 (6.7-8.2) g/dl Albumin 3.7 (3.2-5.5) g/dl Globulin 3.6 Albumin/Globulin Ratio 1.03 Meds: Medications Generic Name Dose Route Start Last Admin Trade Name Freq PRN Reason Stop Dose Admin Sodium Chloride 10 ml 06/14/17 15:28 06/14/17 15:47 Saline Flush FLUSH 10 ml ASDIRECTED PRN Administration Keep Vein Open Discontinued Medications Generic Name Dose Route Start Last Admin Trade Name Freq PRN Reason Stop Dose Admin Acetaminophen 650 mg 06/14/17 15:39 06/14/17 15:54 Tylenol PO 06/14/17 15:40 650 mg NOW ONE Administration Albuterol/Ipratropium 3 ml 06/14/17 15:31 06/14/17 15:39 Duoneb 3.0-0.5 Mg/3 Ml NEB 06/14/17 15:32 3 ml ONETIME ONE Administration Sodium Chloride 1,000 mls @ 999 mls/hr 06/14/17 15:38 06/14/17 15:54 Normal Saline IV 06/14/17 16:38 999 mls/hr .BOLUS ONE Administration Methylprednisolone Sodium Succinate 125 mg 06/14/17 16:18 06/14/17 16:29 Solu-Medrol IVPUSH 06/14/17 16:19 125 mg ONETIME ONE Administration - Radiology Interpretation Free Text/Narrative:: Chest x-ray: No acute cardiopulmonary process. There is no significant interval change. See Rad report. Departure - Departure Time of Disposition: 17:00 Disposition: Admitted As Inpatient 68 Condition: Fair Clinical Impression: Shortness of breath Exacerbation of asthma Qualifiers: Asthma severity: moderate Asthma persistence: unspecified Qualified Code(s): J45.901 - Unspecified asthma with (acute) exacerbation Fever Qualifiers: Fever type: unspecified Qualified Code(s): R50.9 - Fever, unspecified - Discharge Information Forms: ED Department Discharge - My Orders Last 24 Hours: My Active Orders 06/14/17 15:28 EKG Documentation Completion [RC] STAT Sodium Chloride 0.9% [Saline Flush] 10 ml FLUSH ASDIRECTED PRN Blood Culture x2 Reflex Set [OM.PC] Stat Peripheral IV Insertion Adult [OM.PC] Stat 06/14/17 15:29 Peripheral IV Care [RC] . DIRECTED 06/14/17 15:31 RT Aerosol Therapy [RC] ASDIRECTED 06/14/17 15:47 CULTURE BLOOD [BC] Stat 06/14/17 16:20 UA W/MICROSCOPIC [URIN] Stat 06/14/17 16:25 CULTURE BLOOD [BC] Stat - Assessment/Plan Last 24 Hours: My Active Orders 06/14/17 15:28 EKG Documentation Completion [RC] STAT Sodium Chloride 0.9% [Saline Flush] 10 ml FLUSH ASDIRECTED PRN Blood Culture x2 Reflex Set [OM.PC] Stat Peripheral IV Insertion Adult [OM.PC] Stat 06/14/17 15:29 Peripheral IV Care [RC] . DIRECTED 06/14/17 15:31 RT Aerosol Therapy [RC] ASDIRECTED 06/14/17 15:47 CULTURE BLOOD [BC] Stat 06/14/17 16:20 UA W/MICROSCOPIC [URIN] Stat 06/14/17 16:25 CULTURE BLOOD [BC] Stat I have read and agree with the documentation that has been completed regarding this visit. By signing this record, I attest that the documentation was completed in my physical presence and is an accurate record of the encounter.
[2017-06-16] MEDS: atorvaSTATin 20 MG Tab PO SCH (21:06)
[2017-06-16] MEDS: Gabapentin 100 MG Cap PO SCH (21:06)
[2017-06-16] MEDS: Acetaminophen 325 MG Tab PO PRN (21:10)
[2017-06-17] MEDS: Albuterol 0.083% 2.5 MG/3 ML Neb Soln NEB PRN (04:19)
[2017-06-17] MEDS: Heparin Sodium 5,000 Units/ML Vial SUBCUT SCH ×2 (05:29→14:38)
[2017-06-17] MEDS: Pantoprazole 40 MG Tab.CR PO SCH (05:30)
[2017-06-17] MEDS: Albuterol/Ipratropium 3.0-0.5 MG/3 ML Neb Soln NEB SCH (06:36)
[2017-06-17] MEDS: Budesonide 0.5 MG/2 ML Neb Susp NEB SCH (06:36)
[2017-06-17 08:52] VITALS: BP 98/75
[2017-06-17] MEDS: Atenolol 25 MG Tab PO SCH (09:28)
[2017-06-17] MEDS: Furosemide 20 MG Tab PO SCH (09:28)
[2017-06-17] MEDS: Aspirin 81 MG Tab.Chew PO SCH (09:29)
[2017-06-17] MEDS: Escitalopram 10 MG Tab PO SCH (09:29)
[2017-06-17] MEDS: Calcium Carbonate 500 MG Tab.Chew PO SCH (09:29)
[2017-06-17] MEDS: Cholecalciferol (Vitamin D3) 400 Unit Tab PO SCH (09:30)
[2017-06-17] MEDS: Sodium Chloride 0.9% 10 ML Syringe FLUSH PRN (09:32)
[2017-06-17] MEDS: methylPREDNISolone Sodium Succinate 40 MG/1 ML SDV IVPUSH SCH (09:32)
--- NOTE | 2017-06-17 09:40 | PCM.DCSUM1 ---
Discharge Summary - Hospital Course Free Text/Narrative:: The patient is a 57-year-old lady who is morbidly obese, has COPD on nebulizers , history of DVT off anticoagulation, The patient presented with cough, shortness of breath, hypoxemia and wheezing. She was noted to have a fever up to 103 #1 febrile illness This might relate to upper airway infection. Influenza swab was negative at the clinic negative sputum culture negative blood culture Treated empirically with azithromycin and Rocephin. #2 the patient appears to have urinary tract infection urine culture: E coli, sensitive to ceftriaxone/cefazolin, resistant to cipro/ levo Treated with Rocephin finish tx. with keflex #3 acute hypoxemic respiratory failure resolved #4 acute COPD exacerbation Treat with Pulmicort, scheduled DuoNeb use albuterol as needed treated with IV Solu-Medrol and taper prednisone slowly #5 coronary artery disease Continue aspirin, atenolol, Lipitor - Discharge Data Discharge Date: 06/17/17 Discharge Disposition: Home, Self-Care 01 Condition: Good - Discharge Diagnosis/Problem(s) (1) Shortness of breath SNOMED Code(s): 858818585 ICD Code: R06.02 - SHORTNESS OF BREATH Status: Acute Current Visit: Yes (2) UTI (lower urinary tract infection) SNOMED Code(s): 9150587 ICD Code: N39.0 - URINARY TRACT INFECTION, SITE NOT SPECIFIED Status: Acute Current Visit: No - Patient Instructions Diet: Usual Diet as Tolerated Activity: As Tolerated - Discharge Plan Prescriptions/Med Rec: Cephalexin [Keflex] 500 mg PO Q8H #15 cap predniSONE [predniSONE Dose Pack] 10 mg PO ASDIRECTED #32 dospk Home Medications: Home Meds Aspirin [Gunjan Chewable Aspirin] 81 mg PO DAILY 07/25/13 [History] Atenolol [Tenormin] 25 mg PO DAILY 07/25/13 [History] Calcium Carbonate [Calcium] 500 mg PO 08,20 07/25/13 [History] Escitalopram [Lexapro] 20 mg PO DAILY 07/25/13 [History] Furosemide 20 mg PO 08,20 07/25/13 [History] Gabapentin [Neurontin] 100 mg PO BEDTIME 07/25/13 [History] Magnesium 250 mg PO DAILY 07/25/13 [History] Pantoprazole [ProTONIX Granules] 40 mg PO ACBREAKFAST 07/25/13 [History] atorvaSTATin [Lipitor] 20 mg PO BEDTIME 07/25/13 [History] Acetaminophen [Mapap] 650 mg PO ASDIRECTED PRN 10/23/16 [History] Albuterol [Proair HFA] 2 puff INH Q4H PRN 10/23/16 [History] Beclomethasone Dipropionate [Qvar] 1 puff IH BID 10/23/16 [History] Cetirizine [ZyrTEC] 10 mg PO BEDTIME PRN 10/23/16 [History] Cholecalciferol (Vitamin D3) [Vitamin D3] 1,000 unit PO DAILY 10/23/16 [History] Ipratropium [Atrovent] 0.5 mg INH Q4H PRN 10/23/16 [History] Nitroglycerin [Nitrostat] 0.4 mg BUCCAL DAILY PRN 10/23/16 [History] Zolpidem [Ambien] 10 mg PO ASDIRECTED PRN 10/23/16 [History] Cephalexin [Keflex] 500 mg PO Q8H #15 cap 06/17/17 [Rx] predniSONE [predniSONE Dose Pack] 10 mg PO ASDIRECTED #32 dospk 06/17/17 [Rx] Referrals: Pennie Field [Primary Care Provider] - (in 3-4 days) - Discharge Summary/Plan Comment DC Time >30 min.: No - General Info Date of Service: 06/17/17 Subjective Update: She feels that the shortness of breath is gone no wheezing No associated chest pain. No urinary burning No abdominal pain. Functional Status: Reports: Tolerating Diet - Review of Systems General: Denies: Fever Pulmonary: Denies: Shortness of Breath Cardiovascular: Denies: Chest Pain Genitourinary: Denies: Dysuria Neurological: Denies: Confusion - Patient Data Vitals - Most Recent: Last Vital Signs Temp 36.4 C 06/17/17 08:00 Pulse 64 06/17/17 09:28 Resp 20 06/17/17 08:00 BP 98/75 06/17/17 09:28 Pulse Ox 91 L 06/17/17 08:00 Weight - Most Recent: 167.557 kg I&O - Last 24 hours: Intake & Output 01/06/17/17 06/17/17 22:59 06:59 14:59 Intake Total 606 Balance 606 ANGELIKA Results - Last 24 hrs: Microbiology 06/15/17 12:50 Gram Stain - Final Sputum - Expectorated Sputum Culture - Preliminary Normal Vania Med Orders - Current: Current Medications Acetaminophen (Tylenol) 650 mg PO Q4H PRN PRN Reason: Pain (Mild 1-3)/fever Last Admin: 06/16/17 21:10 Dose: 650 mg Albuterol (Proventil Neb Soln) 2.5 mg NEB Q4HRRT PRN PRN Reason: sob Last Admin: 06/17/17 04:19 Dose: 2.5 mg Albuterol/Ipratropium (Duoneb 3.0-0.5 Mg/3 Ml) 3 ml NEB Q8HRRT [facility] Last Admin: 06/17/17 06:36 Dose: 3 ml Aspirin (Aspirin) 81 mg PO DAILY [facility] Last Admin: 06/17/17 09:29 Dose: 81 mg Atenolol (Tenormin) 25 mg PO DAILY [facility] Last Admin: 06/17/17 09:28 Dose: 25 mg Atorvastatin Calcium (Lipitor) 20 mg PO BEDTIME [facility] Last Admin: 06/16/17 21:06 Dose: 20 mg Budesonide (Pulmicort) 0.5 mg NEB BIDRT [facility] Last Admin: 06/17/17 06:36 Dose: 0.5 mg Calcium Carbonate/Glycine (Tums) 500 mg PO BID [facility] Last Admin: 06/17/17 09:29 Dose: 500 mg Ceftriaxone Sodium (Rocephin) 1 gm IVPUSH Q24H [facility] Last Admin: 06/16/17 17:37 Dose: 1 gm Cholecalciferol (Vitamin D3) 1,000 units PO DAILY [facility] Last Admin: 06/17/17 09:30 Dose: 1,000 units Escitalopram Oxalate (Lexapro) 20 mg PO DAILY [facility] Last Admin: 06/17/17 09:29 Dose: 20 mg Furosemide (Lasix) 20 mg PO BID@0800,2000 [facility] Last Admin: 06/17/17 09:28 Dose: 20 mg Gabapentin (Neurontin) 100 mg PO BEDTIME [facility] Last Admin: 06/16/17 21:06 Dose: 100 mg Heparin Sodium (Porcine) (Heparin Sodium) 5,000 units SUBCUT Q8HR [facility] Last Admin: 06/17/17 05:29 Dose: 5,000 units Azithromycin 500 mg/ Sodium (Chloride) 250 mls @ 250 mls/hr IV Q24H [facility] Last Infusion: 06/16/17 20:31 Dose: Infused Magnesium Oxide (Magnesium Oxide) 250 mg PO DAILY [facility] Last Admin: 06/17/17 09:29 Dose: 250 mg Methylprednisolone Sodium Succinate (Solu-Medrol) 40 mg IVPUSH Q8H [facility] Last Admin: 06/17/17 09:32 Dose: 40 mg Nitroglycerin (Nitrostat) 0.4 mg SL DAILY PRN PRN Reason: Chest Pain Ondansetron HCl (Zofran Odt) 4 mg PO Q6H PRN PRN Reason: nausea, able to take PO Pantoprazole Sodium (Protonix) 40 mg PO ACBRK [facility] Last Admin: 06/17/17 05:30 Dose: 40 mg Sodium Chloride (Saline Flush) 10 ml FLUSH ASDIRECTED PRN PRN Reason: Keep Vein Open Last Admin: 06/17/17 09:32 Dose: 10 ml Sodium Chloride (Saline Flush) 10 ml FLUSH ASDIRECTED PRN PRN Reason: Keep Vein Open Zolpidem Tartrate (Ambien) 10 mg PO BEDTIME PRN PRN Reason: Sleep Last Admin: 06/14/17 22:34 Dose: 10 mg Discontinued Medications Acetaminophen (Tylenol) 650 mg PO NOW ONE Stop: 06/14/17 15:40 Last Admin: 06/14/17 15:54 Dose: 650 mg Albuterol/Ipratropium (Duoneb 3.0-0.5 Mg/3 Ml) 3 ml NEB ONETIME ONE Stop: 06/14/17 15:32 Last Admin: 06/14/17 15:39 Dose: 3 ml Sodium Chloride (Normal Saline) 1,000 mls @ 999 mls/hr IV .BOLUS ONE Stop: 06/14/17 16:38 Last Admin: 06/14/17 15:54 Dose: 999 mls/hr Methylprednisolone Sodium Succinate (Solu-Medrol) 125 mg IVPUSH ONETIME ONE Stop: 06/14/17 16:19 Last Admin: 06/14/17 16:29 Dose: 125 mg - Exam General: Reports: Alert, Oriented Neck: Reports: Supple Lungs: Reports: Clear to Auscultation, Normal Respiratory Effort Cardiovascular: Reports: Regular Rate, Regular Rhythm Extremities: No: Pedal Edema *Q Meaningful Use (DIS) - VTE *Q VTE Criteria *Q: - Stroke *Q Stroke Criteria *Q: - AMI *Q AMI Criteria *Q:
--- NOTE | 2017-06-18 14:52 | EKG ---
06/14/2017- SOREN BOYD - FINDINGS: EKG per my reading shows sinus rhythm at the rate of 85. MOD /[id number]
== END 2017-06-17 12:20 | disposition home or self-care (01) | DRG 140 ==
LOC: DL.ED 14:10 → UNDOADMIN 17:23 → DL.MS 17:23
PROVIDERS: ADMIT Internal Medicine; ATTEND Internal Medicine
DX: J44.1 Chronic obstructive pulmonary disease with (acute) exacerbation (principal); J06.9 Acute upper respiratory infection, unspecified; Z87.891 Personal history of nicotine dependence; J96.01 Acute respiratory failure with hypoxia; N39.0 Urinary tract infection, site not specified; I25.10 Atherosclerotic heart disease of native coronary artery without angina pectoris; I10 Essential (primary) hypertension; Z95.5 Presence of coronary angioplasty implant and graft; Z86.711 Personal history of pulmonary embolism; G47.30 Sleep apnea, unspecified; K21.9 Gastro-esophageal reflux disease without esophagitis; G62.9 Polyneuropathy, unspecified; F32.9 Major depressive disorder, single episode, unspecified; E78.00 Pure hypercholesterolemia, unspecified; E66.01 Morbid (severe) obesity due to excess calories; Z68.44 Body mass index [BMI] 60.0-69.9, adult; B96.20 Unspecified Escherichia coli [E. coli] as the cause of diseases classified elsewhere; H54.7 Unspecified visual loss; Z88.8 Allergy status to other drugs, medicaments and biological substances; Z79.82 Long term (current) use of aspirin; Z79.899 Other long term (current) drug therapy
CPT/HCPCS: 36415; 71045; 80048; 80053; 81001; 83605; 84484; 85025; 87040; 87070; 87077; 87086; 87088; 87186; 87205; 93005; 94640; 96360; 99285; A9270-GY; J0456; J0696; J1644; J2920; J2930; J7030; J7050; J7620-GY

== ENCOUNTER 2019-07-20 18:31 | Emergency (ER) | payer BC ==
[2019-07-20 19:30] VITALS: BP 156/71; PULSE 77
[2019-07-20] MEDS ORDERED: Sodium Chloride 0.9% 10 ML Syringe FLUSH PRN (19:37)
[2019-07-20] MEDS ORDERED: Albuterol/Ipratropium 3.0-0.5 MG/3 ML Neb Soln NEB ONE (19:38)
--- NOTE | 2019-07-20 19:41 | EDM.PDOC ---
ED HPI GENERAL MEDICAL PROBLEM - General Chief Complaint: Respiratory Problem Stated Complaint: HAVING TROUBLE BREATHING Time Seen by Provider: 07/20/19 19:37 Source of Information: Reports: Patient History Limitations: Reports: No Limitations - History of Present Illness INITIAL COMMENTS - FREE TEXT/NARRATIVE: she comes emergency Department today with complaints of shortness of breath. She has a history of asthma. He last was on steroids about a month ago. She has had increasing shortness of breath over the past week. Today about 3:00 even the use of nebulizers and her inhalers she continues to be quite short of breath. She has productive thick green cough. She complains of subjective fever and chills. No weakness dizziness lightheadedness. No palpitations. No syncopal. No pain in her chest. No abdominal pain nausea vomiting. - Related Data Allergies Allergy/AdvReac Type Severity Reaction Status Date / Time dorsa Allergy Intermediate Hives and Uncoded 07/20/19 19:21 SOB Home Meds: Home Meds Aspirin [Gunjan Chewable Aspirin] 81 mg PO DAILY 07/25/13 [History] Calcium Carbonate [Calcium] 500 mg PO 07/25/13 [History] Escitalopram [Lexapro] 20 mg PO DAILY 07/25/13 [History] Gabapentin [Neurontin] 100 mg PO BEDTIME 07/25/13 [History] Magnesium 250 mg PO DAILY 07/25/13 [History] atenoloL [Tenormin] 25 mg PO DAILY 07/25/13 [History] atorvaSTATin [Lipitor] 20 mg PO BEDTIME 07/25/13 [History] Acetaminophen [Mapap] 650 mg PO ASDIRECTED PRN 10/23/16 [History] Beclomethasone Dipropionate [Qvar] 1 puff IH BID 10/23/16 [History] Cetirizine [ZyrTEC] 10 mg PO BEDTIME PRN 10/23/16 [History] Cholecalciferol (Vitamin D3) [Vitamin D3] 1,000 unit PO DAILY 10/23/16 [History] Nitroglycerin [Nitrostat] 0.4 mg BUCCAL DAILY PRN 10/23/16 [History] Zolpidem [Ambien] 10 mg PO BEDTIME PRN 10/23/16 [History] Melatonin 10 mg PO DAILY 12/27/17 [History] Ipratropium/Albuterol Sulfate [Iprat-Albut 0.5-3(2.5) mg/3 ml] 1 puff INH ASDIRECTED PRN 07/23/18 [History] Pantoprazole [ProTONIX] 40 mg PO DAILY 07/24/18 [History] Levofloxacin [Levaquin] 750 mg PO DAILY #7 tablet 07/25/18 [Rx] Nystatin [Nystop] 0 gm TOP TID #1 bottle 07/25/18 [Rx] Pantoprazole [ProTONIX] 40 mg PO ACBREAKFAST #30 tab.cr 07/25/18 [Rx] predniSONE [Deltasone] 40 mg PO DAILY #10 tablet 07/25/18 [Rx] Past Medical History HEENT History: Reports: Impaired Vision Other HEENT History: Sees well with glasses Cardiovascular History: Reports: Blood Clots/VTE/DVT, High Cholesterol, Hypertension, Other (See Below) Other Cardiovascular History: Hx of fluid on the heart May 2012. Stent was placed , PE Respiratory History: Reports: Asthma, COPD, PE, Sleep Apnea, Other (See Below) Other Respiratory History: sleep apnea machine. Gastrointestinal History: Reports: GERD Genitourinary History: Reports: None EMBEDDED DEVELOPER History: Reports: Other EMBEDDED DEVELOPER History: 2 nvd Musculoskeletal History: Reports: Other (See Below) Other Musculoskeletal History: Ankle fracture October 2012, foot surgery Neurological History: Reports: Neuropathy, Peripheral Psychiatric History: Reports: Anxiety, Depression, Panic Attack Endocrine/Metabolic History: Reports: Obesity/BMI 30+ Hematologic History: Reports: Blood Transfusion(s) Immunologic History: Reports: None Oncologic (Cancer) History: Reports: None Dermatologic History: Reports: Eczema - Infectious Disease History Infectious Disease History: Reports: None - Past Surgical History Head Surgeries/Procedures: Reports: None Cardiovascular Surgical History: Reports: Coronary Artery Stent GI Surgical History: Reports: Appendectomy, Cholecystectomy, Hernia Repair/Other , Other (See Below) Other GI Surgeries/Procedures: umbilical surg. Hernia. Social & Family History - Family History Family Medical History: Noncontributory HEENT: Reports: Cataract, Macular Degeneration Cardiac: Reports: High Cholesterol Respiratory: Reports: None GI: Reports: Pancreatitis : Reports: None OBGYN: Reports: Endometriosis, Musculoskeletal: Reports: Arthritis, Osteoporosis Neurological: Reports: Alzheimers Disease, Cerebral Aneurysms, Seizure Psychiatric: Reports: Depression Endocrine/Metabolic: Reports: Obesity/MBI 30+ Hematologic: Reports: Anesthesia Reaction Immunologic: Reports: None Dermatologic: Reports: Eczema Oncologic: Reports: None - Tobacco Use Smoking Status *Q: Former Smoker Used Tobacco, but Quit: Yes Month/Year Tobacco Last Used: 06/2008 - Caffeine Use Caffeine Use: Reports: Coffee Other Caffeine Use: 2 cups - Recreational Drug Use Recreational Drug Use: No - Living Situation & Occupation Living situation: Reports: , with Spouse ED ROS GENERAL - Review of Systems Review Of Systems: Comprehensive ROS is negative, except as noted in HPI. ED EXAM, GENERAL - Physical Exam Exam: See Below General Appearance: Alert, Obese (morbidly) Ears: Normal External Exam, Normal Canal, Normal TMs Nose: Normal Inspection, Normal Mucosa Throat/Mouth: Normal Inspection, Normal Lips Head: Atraumatic, Normocephalic Neck: Normal Inspection Respiratory/Chest: No Respiratory Distress, No Accessory Muscle Use, Decreased Breath Sounds (bilaterally), Wheezing (bilaterally more on the right than the left). No: Respiratory Distress, Crackles, Rales, Rhonchi, Accessory Muscle Use , Retractions Cardiovascular: Normal Peripheral Pulses, Regular Rate, Rhythm GI/Abdominal: Normal Bowel Sounds, Soft Back Exam: Normal Inspection Extremities: Normal Inspection, Normal Range of Motion, No Pedal Edema Neurological: Alert, Oriented, Normal Cognition, No Motor/Sensory Deficits Psychiatric: Normal Affect, Normal Mood Skin Exam: Warm, Dry, Intact, Normal Color Course - Vital Signs Last Recorded V/S: Last Vital Signs Temp 36.2 C 07/20/19 19:21 Pulse 77 07/20/19 19:21 Resp 24 H 07/20/19 19:21 BP 156/71 H 07/20/19 19:21 Pulse Ox 95 07/20/19 19:21 - Orders/Labs/Meds Orders: Active Orders 24 hr Category Date Time Status EKG 12 Lead [EKG Documentation Completion] [RC] URGENT Care 07/20/19 19:37 Active Peripheral IV Care [RC] . DIRECTED Care 07/20/19 19:38 Active RT Aerosol Therapy [RC] ASDIRECTED Care 07/20/19 19:38 Active Chest 2V [CR] Urgent Exams 07/20/19 19:37 Taken Peripheral IV Insertion Adult [OM.PC] Stat Oth 07/20/19 19:37 Ordered Labs: Laboratory Tests 07/20/19 07/20/19 Range/Units 19:39 19:39 WBC 7.5 (5.0-10.0) 10^3/uL RBC 4.58 (4.2-5.4) 10^6/uL Hgb 13.4 (12.0-16.0) g/dL Hct 41.0 (37.0-47.0) % MCV 89.5 (80-100) fL MCH 29.3 (27.0-34.0) pg MCHC 32.7 L (33.0-35.0) g/dL Plt Count 301 (150-450) 10^3/uL Neut % (Auto) 57.8 (42.2-75.2) % Lymph % (Auto) 30.1 (20.5-50.1) % Gem % (Auto) 8.3 H (2-8) % Eos % (Auto) 3.1 H (1.0-3.0) % Baso % (Auto) 0.7 (0.0-1.0) % Sodium 136 (135-145) mmol/L Potassium 3.7 (3.6-5.0) mmol/L Chloride 104 (101-111) mmol/L Carbon Dioxide 26.0 (21.0-31.0) mmol/L Anion Gap 9.7 BUN 11 (7-18) mg/dL Creatinine 0.9 (0.6-1.3) mg/dL Est Cr Clr Drug Dosing 57.05 mL/min Estimated GFR (MDRD) > 60 Glucose 129 H (74-105) mg/dL Calcium 9.3 (8.4-10.2) mg/dl Troponin I < 0.02 (0.00-0.02) ng/ml Meds: Medications Discontinued Medications Generic Name Dose Route Start Last Admin Trade Name Freq PRN Reason Stop Dose Admin Albuterol/Ipratropium 3 ml 07/20/19 19:38 07/20/19 20:00 Duoneb 3.0-0.5 Mg/3 Ml NEB 07/20/19 19:39 3 ml ONETIME ONE Administration Methylprednisolone Sodium Succinate 125 mg 07/20/19 20:45 07/20/19 20:50 Solu-Medrol IVPUSH 02/24/20 20:46 125 mg ONETIME ONE Administration Sodium Chloride 10 ml 07/20/19 19:37 07/20/19 20:00 Saline Flush FLUSH 10 ml ASDIRECTED PRN Administration Keep Vein Open - Radiology Interpretation Free Text/Narrative:: chest xray negative per radiology. - Re-Assessments/Exams Free Text/Narrative Re-Assessment/Exam: 07/20/19 22:33 She was given a duo-neb with resolution of her SOB and wheezing. She feels much better after the therapy. Her labs are rather unremarkable as well as her EKG. We will discharge her home with a burst dose of steroids as well as albuterol nebulizer. Continue with her previous therapies. She is comfortable with this plan and her questions answered. Departure - Departure Time of Disposition: 20:46 Disposition: Home, Self-Care 01 Clinical Impression: Asthma exacerbation, mild - Discharge Information Instructions: Asthma, Adult, [id number] Forms: ED Department Discharge Additional Instructions: Continue with previous home therapies but schedule your Duo-Neb for the next few days. Albuterol as needed for acute episodes of SOB. Albuterol MDI or nebulizer as needed as well. RX for Nebulizer given #30. Increase fluids over the next few days. Prednisone 60mg a day for the next 5 days. RX given to the patient. Return to the ED if new or worsening symptoms. Follow up with PCP in the next 5-7 days if not improving sooner if worse. Sepsis Event Note - Evaluation Sepsis Screening Result: No Definite Risk - Focused Exam Vital Signs: Vital Signs Temp Pulse Resp BP Pulse Ox 07/20/19 19:21 36.2 C 77 24 H 156/71 H 95 Date Exam was Performed: 07/20/19 Time Exam was Performed: 22:33 - My Orders Last 24 Hours: My Active Orders 07/20/19 19:37 EKG 12 Lead [EKG Documentation Completion] [RC] URGENT Chest 2V [CR] Urgent Peripheral IV Insertion Adult [OM.PC] Stat 07/20/19 19:38 Peripheral IV Care [RC] . DIRECTED RT Aerosol Therapy [RC] ASDIRECTED - Assessment/Plan Last 24 Hours: My Active Orders 07/20/19 19:37 EKG 12 Lead [EKG Documentation Completion] [RC] URGENT Chest 2V [CR] Urgent Peripheral IV Insertion Adult [OM.PC] Stat 07/20/19 19:38 Peripheral IV Care [RC] . DIRECTED RT Aerosol Therapy [RC] ASDIRECTED Assessment:: Acute asthma exacerbation mild. Plan: Continue with previous home therapies but schedule your Duo-Neb for the next few days. Albuterol as needed for acute episodes of SOB. Albuterol MDI or nebulizer as needed as well. RX for Nebulizer given #30. Increase fluids over the next few days. Prednisone 60mg a day for the next 5 days. RX given to the patient. Return to the ED if new or worsening symptoms. Follow up with PCP in the next 5-7 days if not improving sooner if worse.
[2019-07-20 20:00] LABS: ANION GAP 9.7; CHLORIDE,CL 104 mmol/L (101-111); SODIUM,NA 136 mmol/L (135-145)
[2019-07-20] MEDS ORDERED: methylPREDNISolone Sodium Succinate 125 MG/2 ML SDV IVPUSH ONE (20:45)
== END 2019-07-20 20:58 | disposition home or self-care (01) ==
LOC: DL.ED 18:31
DX: J45.901 Unspecified asthma with (acute) exacerbation (principal); I10 Essential (primary) hypertension; E78.00 Pure hypercholesterolemia, unspecified; K21.9 Gastro-esophageal reflux disease without esophagitis; F41.9 Anxiety disorder, unspecified; F32.9 Major depressive disorder, single episode, unspecified; E66.9 Obesity, unspecified; Z68.44 Body mass index [BMI] 60.0-69.9, adult; Z79.899 Other long term (current) drug therapy; Z87.891 Personal history of nicotine dependence; Z79.82 Long term (current) use of aspirin; Z88.8 Allergy status to other drugs, medicaments and biological substances
CPT/HCPCS: 36415; 71046; 80048; 84484; 85025; 93005; 96374; 99285; J2930; J7620-GY

== ENCOUNTER 2022-05-05 10:45 | Emergency (ER) | payer OTHER ==
[2022-05-05 11:20] VITALS: BP 141/69; PULSE 76
[2022-05-05 12:02] LABS: CORONAVIRUS COVID-19 NAA NEGATIVE (NEGATIVE); RESPIRATORY SYNCYTIAL VIR NAA NEGATIVE (NEGATIVE)
[2022-05-05] MEDS ORDERED: Penicillin G Benzathine/Procaine 600-600 1.2 Millunits/2 ML Syringe IM ONE (12:09)
== END 2022-05-05 12:20 | disposition home or self-care (01) ==
LOC: DL.ED 10:45
DX: J02.0 Streptococcal pharyngitis (principal); J44.9 Chronic obstructive pulmonary disease, unspecified; K21.9 Gastro-esophageal reflux disease without esophagitis; E66.9 Obesity, unspecified; Z86.16 Personal history of COVID-19; Z88.8 Allergy status to other drugs, medicaments and biological substances; Z79.82 Long term (current) use of aspirin; Z79.899 Other long term (current) drug therapy; Z20.822 Contact with and (suspected) exposure to COVID-19
CPT/HCPCS: 0241U; 87430; 96372; 99283; J0558

== ENCOUNTER 2023-02-23 11:39 | Emergency (ER) | payer SELFPAY ==
[2023-02-23 12:09] VITALS: BP 151/78; PULSE 63
[2023-02-23 13:07] LABS: CORONAVIRUS COVID-19 NAA NEGATIVE (NEGATIVE); INFLUENZA A NAA NEGATIVE (NEGATIVE); INFLUENZA B NAA NEGATIVE (NEGATIVE); RESPIRATORY SYNCYTIAL VIR NAA NEGATIVE (NEGATIVE)
[2023-02-23] MEDS ORDERED: methylPREDNISolone Sodium Succinate 125 MG/2 ML SDV IVPUSH ONE (13:46)
[2023-02-23] MEDS ORDERED: methylPREDNISolone 4 MG Tab 21 Tab/Dosepak PO ONE (15:18)
[2023-02-23] MEDS ORDERED: predniSONE 1 MG Tab PO ONE (15:36)
[2023-02-23] MEDS ORDERED: methylPREDNISolone 4 MG Tab 21 Tab/Dosepak PO SCH (15:45)
[2023-02-24] MEDS ORDERED: methylPREDNISolone 4 MG Tab 21 Tab/Dosepak PO ONE (15:10)
== END 2023-02-23 15:53 | disposition home or self-care (01) ==
LOC: DL.ED 11:39
DX: J45.901 Unspecified asthma with (acute) exacerbation (principal); J84.10 Pulmonary fibrosis, unspecified; I10 Essential (primary) hypertension; E78.00 Pure hypercholesterolemia, unspecified; K21.9 Gastro-esophageal reflux disease without esophagitis; E66.9 Obesity, unspecified; Z68.43 Body mass index [BMI] 50.0-59.9, adult; Z86.16 Personal history of COVID-19; Z88.8 Allergy status to other drugs, medicaments and biological substances; Z79.82 Long term (current) use of aspirin; Z79.899 Other long term (current) drug therapy; Z87.891 Personal history of nicotine dependence; Z20.822 Contact with and (suspected) exposure to COVID-19
CPT/HCPCS: 0241U; 71046; 93005; 93010; 96374; 99284; 99284-25; J2930; J7509

== ENCOUNTER 2023-03-20 11:54 | Inpatient (IN) | payer MEDICAID ==
[2023-03-20] MEDS ORDERED: Sennosides/Docusate Sodium 50-8.6 MG Tab PO PRN (12:32)
[2023-03-20] MEDS ORDERED: Magnesium Hydroxide 400 MG/5 ML Susp 30 ML Cup PO PRN (12:32)
[2023-03-20] MEDS ORDERED: Naloxone 2 MG/2 ML Syringe IVPUSH PRN (12:32)
[2023-03-20] MEDS ORDERED: Albuterol/Ipratropium 3.0-0.5 MG/3 ML Neb Soln NEB PRN (12:32)
[2023-03-20] MEDS ORDERED: Acetaminophen/oxyCODONE 325-5 MG Tab PO PRN (12:32)
[2023-03-20] MEDS ORDERED: HYDROmorphone 0.5 MG/0.5 ML Syringe IVPUSH PRN (12:32)
[2023-03-20] MEDS ORDERED: Polyethylene Glycol 3350 Powder 17 GM Packet PO PRN (12:32)
[2023-03-20] MEDS ORDERED: Acetaminophen 325 MG Tab PO PRN (12:32)
[2023-03-20] MEDS ORDERED: Ondansetron 4 MG/2 ML SDV IVPUSH PRN (12:32)
[2023-03-20] MEDS ORDERED: guaiFENesin/Dextromethorphan 100-10 MG/5 ML Soln 5 ML Cup PO PRN (12:38)
[2023-03-20] MEDS ORDERED: hydrALAZINE 20 MG/ML SDV IVPUSH PRN (12:38)
[2023-03-20] MEDS ORDERED: Metoprolol Tartrate 5 MG/5 ML SDV IVPUSH PRN (12:38)
[2023-03-20] MEDS ORDERED: 50% Dextrose in Water 50 ML Syringe IVPUSH PRN (12:40)
[2023-03-20] MEDS ORDERED: Glucagon,Human Recombinant 1 MG Vial IM PRN (12:40)
[2023-03-20] MEDS ORDERED: Azithromycin 500 MG in Sodium Chloride 0.9% 250 ML IV ONE (12:45)
[2023-03-20] MEDS ORDERED: guaiFENesin 600 MG Tab.ER PO ONE (12:45)
[2023-03-20] MEDS ORDERED: methylPREDNISolone Sodium Succinate 125 MG/2 ML SDV IVPUSH ONE (12:50)
[2023-03-20 12:56] LABS: BASOPHILS PERCENT AUTO 0.1 % (0.0-1.0); EOSINOPHILS PERCENT AUTO 0.6 % (1.0-3.0); HEMATOCRIT 41.8 % (37.0-47.0); LYMPHOCYTES PERCENT AUTO 11.6 % (20.5-50.1); MEAN CORPUSCULAR HEMOGLOBIN 35.2 pg (27.0-34.0); MEAN CORPUSCULAR HGB CONC 35.9 g/dL (33.0-35.0); MEAN CORPUSCULAR VOLUME 98.1 fL (80-100); MONOCYTES PERCENT AUTO 7.9 % (2-8); NEUTROPHILS PERCENT AUTO 79.8 % (42.2-75.2); PLATELET COUNT,PLT 264 10^3/uL (150-450); RED BLOOD CELL COUNT 4.26 10^6/uL (4.2-5.4); WHITE BLOOD CELL COUNT,WBC 10.7 10^3/uL (5.0-10.0)
[2023-03-20 13:11] LABS: HEMOGLOBIN A1C 5.3 % (<5.7)
[2023-03-20 13:14] LABS: PROTHROMBIN TIME 9.9 SEC (9.0-12.0); PTT,PARTIAL THROMBOPLSTIN TIME 23.9 SEC (22.0-34.0)
[2023-03-20 13:19] LABS: ALANINE AMINOTRANSFERASE,ALT 17 U/L (14-59); ALBUMIN 3.1 g/dL (3.4-5.0); ALKALINE PHOSPHATASE 91 U/L (46-116); ANION GAP 11.5 mEq/L (7-13); ASPARTATE AMNIOTRANSFERASE,AST 8 U/L (15-37); BILIRUBIN TOTAL 0.5 mg/dL (0.2-1.0); BLOOD UREA NITROGEN,BUN 13 mg/dL (7-18); BUN/CREATININE RATIO 14.1 (No establ ref range); C-REACTIVE PROTEIN 2.58 ng/dL (<=0.30); CALCIUM 9.1 mg/dL (8.5-10.1); CARBON DIOXIDE,CO2 31 mmol/L (21-32); CHLORIDE,CL 105 mmol/L (98-107); CREATININE 0.92 mg/dL (0.55-1.02); GLUCOSE RANDOM 130 mg/dL (70-99); POTASSIUM,K 4.5 mmol/L (3.5-5.1); SODIUM,NA 143 mmol/L (136-145)
[2023-03-20 13:25] LABS: A/G RATIO 0.79; ESTIMATED GFR 71 mL/min (>=60)
[2023-03-20 13:26] LABS: T4 FREE 0.89 ng/dL (0.76-1.46); TSH ULTRASENSITIVE 1.47 uIU/mL (0.36-3.74)
[2023-03-20 14:28] LABS: CORONAVIRUS COVID-19 NAA NEGATIVE (NEGATIVE); INFLUENZA A NAA NEGATIVE (NEGATIVE); INFLUENZA B NAA NEGATIVE (NEGATIVE); RESPIRATORY SYNCYTIAL VIR NAA NEGATIVE (NEGATIVE)
[2023-03-20] MEDS: Sodium Chloride 0.9% 10 ML Syringe FLUSH PRN (14:32)
[2023-03-20 15:36] LABS: APPEARANCE,URINE CLEAR (CLEAR); BILIRUBIN,URINE NEGATIVE (NEGATIVE); COLOR,URINE YELLOW (YELLOW); GLUCOSE,URINE NEGATIVE (NEGATIVE); KETONES,URINE NEGATIVE (NEGATIVE); LEUKOCYTE ESTERASE,URINE SMALL (NEGATIVE); NITRITE,URINE POSITIVE (NEGATIVE); OCCULT BLOOD,URINE NEGATIVE (NEGATIVE); PROTEIN,URINE NEGATIVE (NEGATIVE); UROBILINOGEN,URINE 0.2 mg/dL (0.2-1.0)
[2023-03-20] MEDS: Sodium Chloride 0.9% 1,000 ML IV SCH (15:36)
[2023-03-20 15:49] LABS: BACTERIA,URINE MANY /HPF (0-FEW/HPF); EPITHELIAL CELLS,URINE FEW /HPF (NOT SEEN); RBC,URINE 0-5 /HPF (0-5)
[2023-03-20] MEDS: Piperacillin/Tazobactam 4.5 GM in Sodium Chloride 0.9% 100 ML IV SCH ×2 (17:23→21:17)
[2023-03-20] MEDS: methylPREDNISolone Sodium Succinate 40 MG/1 ML SDV IVPUSH SCH (18:25)
[2023-03-20] MEDS: Insulin Lispro 100 Units/ML 3 ML Vial SUBCUT SCH (18:42)
[2023-03-20] MEDS ORDERED: Melatonin 3 MG Tab PO PRN (19:11)
[2023-03-20] MEDS ORDERED: Lactated Ringers 1,000 ML IV ONE (20:29)
[2023-03-20] MEDS: guaiFENesin 600 MG Tab.ER PO SCH (21:18)
[2023-03-20] MEDS: Enoxaparin 60 MG/0.6 ML Syringe SUBCUT SCH (21:18)
[2023-03-20] MEDS: Zolpidem 5 MG Tab PO PRN (21:18)
[2023-03-20] MEDS: Sodium Chloride 0.9% 10 ML Syringe FLUSH SCH (21:23)
[2023-03-21] MEDS: methylPREDNISolone Sodium Succinate 40 MG/1 ML SDV IVPUSH SCH ×3 (01:02→12:33)
[2023-03-21] MEDS: Piperacillin/Tazobactam 4.5 GM in Sodium Chloride 0.9% 100 ML IV SCH ×3 (04:36→17:55)
[2023-03-21 06:03] LABS: BASOPHILS PERCENT AUTO 0.1 % (0.0-1.0); HEMATOCRIT 40.3 % (37.0-47.0); HEMOGLOBIN 12.7 g/dL (12.0-16.0); LYMPHOCYTES PERCENT AUTO 10.9 % (20.5-50.1); MEAN CORPUSCULAR HEMOGLOBIN 30.5 pg (27.0-34.0); MEAN CORPUSCULAR HGB CONC 31.5 g/dL (33.0-35.0); MEAN CORPUSCULAR VOLUME 96.9 fL (80-100); MONOCYTES PERCENT AUTO 1.4 % (2-8); NEUTROPHILS PERCENT AUTO 87.6 % (42.2-75.2); PLATELET COUNT,PLT 300 10^3/uL (150-450); RED BLOOD CELL COUNT 4.16 10^6/uL (4.2-5.4); WHITE BLOOD CELL COUNT,WBC 7.3 10^3/uL (5.0-10.0)
[2023-03-21 06:26] LABS: ALBUMIN 2.8 g/dL (3.4-5.0); ANION GAP 13.2 mEq/L (7-13); BILIRUBIN TOTAL 0.5 mg/dL (0.2-1.0); BUN/CREATININE RATIO 15.9 (No establ ref range); C-REACTIVE PROTEIN 3.29 ng/dL (<=0.30); CALCIUM 9.3 mg/dL (8.5-10.1); CREATININE 0.82 mg/dL (0.55-1.02); EST CRCL DRUG DOSING (CG) 60.35 mL/min; MAGNESIUM 2.1 mg/dL (1.8-2.4); POTASSIUM,K 4.2 mmol/L (3.5-5.1)
[2023-03-21 06:29] LABS: A/G RATIO 0.67
[2023-03-21] MEDS: Sodium Chloride 0.9% 1,000 ML IV SCH (06:57)
[2023-03-21] MEDS: Insulin Lispro 100 Units/ML 3 ML Vial SUBCUT SCH ×3 (08:17→18:04)
[2023-03-21] MEDS: Enoxaparin 60 MG/0.6 ML Syringe SUBCUT SCH ×2 (09:25→20:30)
[2023-03-21] MEDS: Azithromycin 500 MG in Sodium Chloride 0.9% 250 ML IV SCH (09:26)
[2023-03-21] MEDS: guaiFENesin 600 MG Tab.ER PO SCH ×2 (09:26→20:30)
[2023-03-21] MEDS: Sodium Chloride 0.9% 10 ML Syringe FLUSH SCH ×2 (09:26→23:50)
[2023-03-21] MEDS ORDERED: Loratadine 10 MG Tab PO PRN (13:17)
[2023-03-21] MEDS: Gabapentin 100 MG Cap PO SCH ×2 (14:20→20:30)
[2023-03-21] MEDS ORDERED: methylPREDNISolone Sodium Succinate 125 MG/2 ML SDV IVPUSH SCH (15:00)
[2023-03-21] MEDS: methylPREDNISolone Sodium Succinate 125 MG/2 ML SDV IVPUSH SCH (20:03)
[2023-03-21] MEDS: Zolpidem 5 MG Tab PO PRN (20:30)
[2023-03-21] MEDS: Formoterol/Mometasone 200-5 MCG 8.8 GM Inhaler IH SCH (20:35)
[2023-03-21] MEDS ORDERED: atorvaSTATin 20 MG Tab PO SCH (21:00)
[2023-03-22] MEDS: Piperacillin/Tazobactam 4.5 GM in Sodium Chloride 0.9% 100 ML IV SCH ×3 (00:01→12:38)
[2023-03-22] MEDS: Sodium Chloride 0.9% 10 ML Syringe FLUSH PRN ×2 (04:17→05:49)
[2023-03-22] MEDS: methylPREDNISolone Sodium Succinate 125 MG/2 ML SDV IVPUSH SCH ×2 (04:17→12:32)
[2023-03-22] MEDS ORDERED: Tiotropium Bromide 4 GM Inhalation Spray (2.5mcg/1 dose; 10 doses) INH SCH (06:00)
[2023-03-22] MEDS ORDERED: Budesonide 0.5 MG/2 ML Neb Susp INH SCH (06:00)
[2023-03-22 06:54] LABS: BASOPHILS PERCENT AUTO 0.1 % (0.0-1.0); HEMATOCRIT 39.4 % (37.0-47.0); HEMOGLOBIN 12.4 g/dL (12.0-16.0); LYMPHOCYTES PERCENT AUTO 9.3 % (20.5-50.1); MEAN CORPUSCULAR HEMOGLOBIN 30.5 pg (27.0-34.0); MEAN CORPUSCULAR HGB CONC 31.5 g/dL (33.0-35.0); MEAN CORPUSCULAR VOLUME 96.8 fL (80-100); MONOCYTES PERCENT AUTO 3.7 % (2-8); NEUTROPHILS PERCENT AUTO 86.9 % (42.2-75.2); PLATELET COUNT,PLT 329 10^3/uL (150-450); RED BLOOD CELL COUNT 4.07 10^6/uL (4.2-5.4); WHITE BLOOD CELL COUNT,WBC 14.6 10^3/uL (5.0-10.0)
[2023-03-22 07:21] LABS: A/G RATIO 0.78; ALBUMIN 2.9 g/dL (3.4-5.0); ANION GAP 13.2 mEq/L (7-13); BILIRUBIN TOTAL 0.4 mg/dL (0.2-1.0); BUN/CREATININE RATIO 14.3 (No establ ref range); C-REACTIVE PROTEIN 1.55 ng/dL (<=0.30); CALCIUM 9.4 mg/dL (8.5-10.1); CREATININE 1.05 mg/dL (0.55-1.02); EST CRCL DRUG DOSING (CG) 47.13 mL/min; MAGNESIUM 1.9 mg/dL (1.8-2.4); POTASSIUM,K 4.2 mmol/L (3.5-5.1); PROTEIN TOTAL,TP 6.6 g/dL (6.4-8.2)
[2023-03-22] MEDS: Azithromycin 500 MG in Sodium Chloride 0.9% 250 ML IV SCH (08:48)
[2023-03-22] MEDS: Enoxaparin 60 MG/0.6 ML Syringe SUBCUT SCH (08:52)
[2023-03-22] MEDS: guaiFENesin 600 MG Tab.ER PO SCH (08:52)
[2023-03-22] MEDS: Gabapentin 100 MG Cap PO SCH ×2 (08:52→14:40)
[2023-03-22] MEDS: Sodium Chloride 0.9% 10 ML Syringe FLUSH SCH (08:53)
[2023-03-22] MEDS: Insulin Lispro 100 Units/ML 3 ML Vial SUBCUT SCH ×2 (08:53→12:40)
[2023-03-22] MEDS: Formoterol/Mometasone 200-5 MCG 8.8 GM Inhaler IH SCH (08:57)
[2023-03-22] MEDS ORDERED: Magnesium Oxide 400 MG Tab PO SCH (09:00)
[2023-03-22] MEDS ORDERED: Aspirin 81 MG Tab.Chew PO SCH (09:00)
[2023-03-22] MEDS ORDERED: Escitalopram 10 MG Tab PO SCH (09:00)
[2023-03-22] MEDS ORDERED: Cholecalciferol (Vitamin D3) 25 MCG Tab PO SCH (09:00)
[2023-03-22] MEDS ORDERED: Diltiazem 120 MG Cap.CD PO SCH (09:00)
[2023-03-22 11:58] VITALS: PULSE 66
[2023-03-22 15:58] VITALS: BP 105/47
== END 2023-03-22 15:13 | disposition home or self-care (01) | DRG 177 ==
LOC: UNDOADMIN 11:54 → DL.MS 11:54
PROVIDERS: ADMIT Internal Medicine; ATTEND Internal Medicine
DX: J15.212 Pneumonia due to Methicillin resistant Staphylococcus aureus (principal); J96.01 Acute respiratory failure with hypoxia; J44.1 Chronic obstructive pulmonary disease with (acute) exacerbation; N39.0 Urinary tract infection, site not specified; J98.11 Atelectasis; E87.20 Acidosis, unspecified; E46 Unspecified protein-calorie malnutrition; Z68.43 Body mass index [BMI] 50.0-59.9, adult; J44.0 Chronic obstructive pulmonary disease with (acute) lower respiratory infection; I10 Essential (primary) hypertension; I25.10 Atherosclerotic heart disease of native coronary artery without angina pectoris; K21.9 Gastro-esophageal reflux disease without esophagitis; J44.9 Chronic obstructive pulmonary disease, unspecified; G47.33 Obstructive sleep apnea (adult) (pediatric); F41.9 Anxiety disorder, unspecified; F32.A Depression, unspecified; E78.00 Pure hypercholesterolemia, unspecified; G62.9 Polyneuropathy, unspecified; D35.01 Benign neoplasm of right adrenal gland; R73.9 Hyperglycemia, unspecified; E88.09 Other disorders of plasma-protein metabolism, not elsewhere classified; E66.01 Morbid (severe) obesity due to excess calories; I27.20 Pulmonary hypertension, unspecified; B96.89 Other specified bacterial agents as the cause of diseases classified elsewhere; Z11.52 Encounter for screening for COVID-19; Z87.891 Personal history of nicotine dependence; Z88.8 Allergy status to other drugs, medicaments and biological substances; Z79.82 Long term (current) use of aspirin; Z79.899 Other long term (current) drug therapy; Z79.2 Long term (current) use of antibiotics; Z95.5 Presence of coronary angioplasty implant and graft; Z86.711 Personal history of pulmonary embolism; Z86.16 Personal history of COVID-19; Z98.890 Other specified postprocedural states; Z90.49 Acquired absence of other specified parts of digestive tract; Z87.11 Personal history of peptic ulcer disease; Z86.718 Personal history of other venous thrombosis and embolism
CPT/HCPCS: 0241U; 36415; 80053; 81001; 82306; 82947; 83036; 83605; 83735; 84439; 84443; 84484; 85025; 85610; 85730; 86140; 87040; 87070; 87077; 87186; 87205; 94618; 97161; 97165; 99223; 99233; 99238; A9270-GY; J0456; J1650; J1815-GY; J2543; J2920; J2930; J3490; J7030; J7050; J7120

== ENCOUNTER 2023-08-25 19:30 | Emergency (ER) | payer SELFPAY ==
[2023-08-25 20:30] VITALS: BP 115/65; PULSE 94
== END 2023-08-25 20:37 | disposition home or self-care (01) ==
LOC: DL.ED 19:30
DX: M25.511 Pain in right shoulder (principal); I10 Essential (primary) hypertension; E78.00 Pure hypercholesterolemia, unspecified; J44.89 Other specified chronic obstructive pulmonary disease; E66.9 Obesity, unspecified; Z68.43 Body mass index [BMI] 50.0-59.9, adult; Z86.16 Personal history of COVID-19; Z88.7 Allergy status to serum and vaccine; Z88.6 Allergy status to analgesic agent; Z79.82 Long term (current) use of aspirin; Z79.899 Other long term (current) drug therapy; Z79.51 Long term (current) use of inhaled steroids; Z95.5 Presence of coronary angioplasty implant and graft; Z90.49 Acquired absence of other specified parts of digestive tract; X50.0XXA Overexertion from strenuous movement or load, initial encounter
CPT/HCPCS: 73030-RT; 99283; 99284

== ENCOUNTER 2023-10-24 15:37 | Emergency (ER) | payer MEDICAID, OTHER ==
[2023-10-24 15:57] VITALS: BP 114/79; PULSE 126
[2023-10-24] MEDS: HYDROmorphone 1 MG/ML Syringe IVPUSH ONE (16:09)
[2023-10-24] MEDS: Sodium Chloride 0.9% 10 ML Syringe FLUSH PRN (16:10)
[2023-10-24] MEDS: Sodium Chloride 0.9% 1,000 ML IV ONE (16:10)
[2023-10-24] MEDS: Ondansetron 4 MG/2 ML SDV IV ONE (16:10)
[2023-10-24 16:22] LABS: BASOPHILS PERCENT AUTO 0.3 % (0.0-1.0); EOSINOPHILS PERCENT AUTO 1.5 % (1.0-3.0); HEMATOCRIT 44.7 % (37.0-47.0); HEMOGLOBIN 14.9 g/dL (12.0-16.0); LYMPHOCYTES PERCENT AUTO 20.6 % (20.5-50.1); MEAN CORPUSCULAR HEMOGLOBIN 29.7 pg (27.0-34.0); MEAN CORPUSCULAR HGB CONC 33.3 g/dL (33.0-35.0); MEAN CORPUSCULAR VOLUME 89.2 fL (80-100); MONOCYTES PERCENT AUTO 6.7 % (2-8); NEUTROPHILS PERCENT AUTO 70.9 % (42.2-75.2); PLATELET COUNT,PLT 333 10^3/uL (150-450); RED BLOOD CELL COUNT 5.01 10^6/uL (4.2-5.4); WHITE BLOOD CELL COUNT,WBC 11.7 10^3/uL (5.0-10.0)
[2023-10-24 16:49] LABS: LACTIC ACID 2.3 mmol/L (0.4-2.0)
[2023-10-24 16:54] LABS: A/G RATIO 0.9; ALANINE AMINOTRANSFERASE,ALT 21 U/L (14-59); ALBUMIN 3.4 g/dL (3.4-5.0); ALKALINE PHOSPHATASE 114 U/L (46-116); ANION GAP 14.9 mEq/L (7-13); ASPARTATE AMNIOTRANSFERASE,AST 11 U/L (15-37); BILIRUBIN TOTAL 0.6 mg/dL (0.2-1.0); BLOOD UREA NITROGEN,BUN 14 mg/dL (7-18); BUN/CREATININE RATIO 14.4 (No establ ref range); C-REACTIVE PROTEIN 3.04 ng/dL (<=0.50); CALCIUM 9.5 mg/dL (8.5-10.1); CARBON DIOXIDE,CO2 27 mmol/L (21-32); CHLORIDE,CL 104 mmol/L (98-107); CREATININE 0.97 mg/dL (0.55-1.02); EST CRCL DRUG DOSING (CG) 48.17 mL/min; GLUCOSE RANDOM 127 mg/dL (70-99); LIPASE 42 U/L (16-77); POTASSIUM,K 3.9 mmol/L (3.5-5.1); PROTEIN TOTAL,TP 7.3 g/dL (6.4-8.2); SODIUM,NA 142 mmol/L (136-145)
[2023-10-24 16:56] LABS: ESTIMATED GFR 66 mL/min (>=60)
[2023-10-24] MEDS ORDERED: Iopamidol 612 MG/ML 100 ML Bottle IVPUSH ONE (16:56)
[2023-10-24] MEDS: Iopamidol 755 Mg/ML 100 ML Bottle IVPUSH ONE (17:25)
[2023-10-24] MEDS: Piperacillin/Tazobactam 4.5 GM in Sodium Chloride 0.9% 100 ML IV ONE (18:13)
== END 2023-10-24 18:52 | disposition home or self-care (01) ==
LOC: DL.ED 15:37
DX: K57.32 Diverticulitis of large intestine without perforation or abscess without bleeding (principal); I10 Essential (primary) hypertension; E78.00 Pure hypercholesterolemia, unspecified; Z95.5 Presence of coronary angioplasty implant and graft; K21.9 Gastro-esophageal reflux disease without esophagitis; Z88.8 Allergy status to other drugs, medicaments and biological substances; Z79.82 Long term (current) use of aspirin; Z79.899 Other long term (current) drug therapy; Z79.51 Long term (current) use of inhaled steroids; Z86.16 Personal history of COVID-19; Z90.49 Acquired absence of other specified parts of digestive tract
CPT/HCPCS: 36415; 74177; 80053; 83605; 83690; 84145; 85025; 86140; 87040; 96361; 96365; 96375; 99284; J1170; J2405; J2543; J3490; J7030; Q9967

== ENCOUNTER 2024-10-30 18:41 | Inpatient (IN) | payer MEDICAID, OTHER ==
[2024-10-30] MEDS ORDERED: Sodium Chloride 0.9% 10 ML Syringe FLUSH PRN (18:46)
[2024-10-30 19:08] LABS: BASOPHILS PERCENT AUTO 0.2 % (0.0-1.0); EOSINOPHILS PERCENT AUTO 0.2 % (1.0-3.0); HEMATOCRIT 43.3 % (37.0-47.0); HEMOGLOBIN 13.9 g/dL (12.0-16.0); LYMPHOCYTES PERCENT AUTO 8.4 % (20.5-50.1); MEAN CORPUSCULAR HEMOGLOBIN 29.3 pg (27.0-34.0); MEAN CORPUSCULAR HGB CONC 32.1 g/dL (33.0-35.0); MEAN CORPUSCULAR VOLUME 91.2 fL (80-100); MONOCYTES PERCENT AUTO 7.4 % (2-8); NEUTROPHILS PERCENT AUTO 83.8 % (42.2-75.2); PLATELET COUNT,PLT 384 10^3/uL (150-450); RED BLOOD CELL COUNT 4.75 10^6/uL (4.2-5.4); WHITE BLOOD CELL COUNT,WBC 23.6 10^3/uL (5.0-10.0)
[2024-10-30] MEDS: cefTRIAXone 2 GM Vial IVPUSH ONE (19:28)
[2024-10-30] MEDS: Sodium Chloride 0.9% 1,000 ML IV ONE ×2 (19:28→22:05)
[2024-10-30] MEDS: Azithromycin 500 MG in Sodium Chloride 0.9% 250 ML IV ONE (19:34)
[2024-10-30] MEDS: Ketorolac 30 MG/ML SDV IVPUSH ONE (20:01)
[2024-10-30 20:05] LABS: ANION GAP 16.3 mEq/L (7-13); CHLORIDE,CL 104 mmol/L (98-107); POTASSIUM,K 4.3 mmol/L (3.5-4.5); SODIUM,NA 142 mmol/L (138-146)
[2024-10-30 20:06] LABS: BLOOD UREA NITROGEN,BUN 12 mg/dL (8-26); CARBON DIOXIDE,CO2 26 mmol/L (23-30); EST CRCL DRUG DOSING (CG) 47.77 mL/min; ESTIMATED GFR 63 mL/min (>=60); GLUCOSE RANDOM 123 mg/dL (74-100)
[2024-10-30 20:07] LABS: CREATININE 1.01 mg/dL (0.51-1.19)
[2024-10-30 20:13] LABS: LACTIC ACID 2.1 mmol/L (0.56-1.39)
[2024-10-30] MEDS ORDERED: Albuterol/Ipratropium 3.0-0.5 MG/3 ML Neb Soln NEB PRN (20:58)
[2024-10-30] MEDS ORDERED: Acetaminophen 325 MG Tab PO PRN (20:58)
[2024-10-30] MEDS ORDERED: Loratadine 10 MG Tab PO PRN (21:10)
[2024-10-30] MEDS: Diltiazem 120 MG Cap.CD PO SCH (21:53)
[2024-10-30] MEDS: Formoterol/Mometasone 200-5 MCG 8.8 GM Inhaler INH SCH (21:56)
[2024-10-30] MEDS: Citalopram 20 MG Tab PO SCH (21:56)
[2024-10-30] MEDS: Pantoprazole 40 MG Tab.CR PO SCH (21:56)
[2024-10-30 22:04] LABS: PROTEIN TOTAL,TP 6.2 g/dL (6.4-8.2)
[2024-10-30 22:05] LABS: A/G RATIO 0.77; ALANINE AMINOTRANSFERASE,ALT 12 U/L (14-59); ALBUMIN 2.7 g/dL (3.4-5.0); ALKALINE PHOSPHATASE 102 U/L (46-116); ASPARTATE AMNIOTRANSFERASE,AST 6 U/L (15-37); BILIRUBIN TOTAL 0.4 mg/dL (0.2-1.0); BUN/CREATININE RATIO 13.9 (No establ ref range); MAGNESIUM 1.8 mg/dL (1.8-2.4)
[2024-10-30] MEDS: Melatonin 3 MG Tab PO SCH (22:05)
[2024-10-30] MEDS: Heparin Sodium 5,000 Units/ML Vial SUBCUT SCH (22:06)
[2024-10-30] MEDS: Magnesium Oxide 400 MG Tab PO SCH (22:12)
[2024-10-30] MEDS: Budesonide 0.5 MG/2 ML Neb Susp INH SCH (22:12)
[2024-10-31 06:47] LABS: BASOPHILS PERCENT AUTO 0.1 % (0.0-1.0); EOSINOPHILS PERCENT AUTO 1.1 % (1.0-3.0); HEMATOCRIT 37.9 % (37.0-47.0); LYMPHOCYTES PERCENT AUTO 13.3 % (20.5-50.1); MEAN CORPUSCULAR HEMOGLOBIN 29.6 pg (27.0-34.0); MEAN CORPUSCULAR HGB CONC 31.7 g/dL (33.0-35.0); MEAN CORPUSCULAR VOLUME 93.3 fL (80-100); MONOCYTES PERCENT AUTO 7.4 % (2-8); NEUTROPHILS PERCENT AUTO 78.1 % (42.2-75.2); PLATELET COUNT,PLT 250 10^3/uL (150-450); RED BLOOD CELL COUNT 4.06 10^6/uL (4.2-5.4); WHITE BLOOD CELL COUNT,WBC 14.1 10^3/uL (5.0-10.0)
[2024-10-31 07:26] LABS: ANION GAP 15.4 mEq/L (7-13); CALCIUM 1.23 mmol/l (1.15-1.33); CREATININE 0.97 mg/dL (0.51-1.19); EST CRCL DRUG DOSING (CG) 49.74 mL/min; POTASSIUM,K 3.4 mmol/L (3.5-4.5)
[2024-10-31] MEDS: Aspirin 81 MG Tab.Chew PO SCH (08:29)
[2024-10-31] MEDS: Gabapentin 100 MG Cap PO SCH (08:30)
[2024-10-31 09:11] LABS: LACTIC ACID 1.52 mmol/L (0.56-1.39)
[2024-10-31 10:17] VITALS: BP 146/99; PULSE 80
[2024-10-31] MEDS ORDERED: cefTRIAXone 2 GM Vial IVPUSH SCH (18:00)
[2024-10-31] MEDS ORDERED: Azithromycin 500 MG in Sodium Chloride 0.9% 250 ML IV SCH (18:00)
[2024-10-31] MEDS ORDERED: atorvaSTATin 20 MG Tab PO SCH (21:00)
== END 2024-10-31 10:18 | disposition home or self-care (01) | DRG 871 ==
LOC: DL.ED 18:41 → DL.MS 20:14
PROVIDERS: ADMIT Internal Medicine; ATTEND Internal Medicine
DX: A41.9 Sepsis, unspecified organism (principal); J15.9 Unspecified bacterial pneumonia; J96.01 Acute respiratory failure with hypoxia; Z68.44 Body mass index [BMI] 60.0-69.9, adult; J44.0 Chronic obstructive pulmonary disease with (acute) lower respiratory infection; R65.20 Severe sepsis without septic shock; H54.7 Unspecified visual loss; I10 Essential (primary) hypertension; E78.00 Pure hypercholesterolemia, unspecified; Z95.5 Presence of coronary angioplasty implant and graft; K21.9 Gastro-esophageal reflux disease without esophagitis; G62.9 Polyneuropathy, unspecified; F41.9 Anxiety disorder, unspecified; F32.A Depression, unspecified; G47.33 Obstructive sleep apnea (adult) (pediatric); K57.90 Diverticulosis of intestine, part unspecified, without perforation or abscess without bleeding; E66.01 Morbid (severe) obesity due to excess calories; Z99.81 Dependence on supplemental oxygen; Z88.8 Allergy status to other drugs, medicaments and biological substances; Z79.82 Long term (current) use of aspirin; Z98.890 Other specified postprocedural states; Z86.718 Personal history of other venous thrombosis and embolism; Z90.49 Acquired absence of other specified parts of digestive tract; Z79.899 Other long term (current) drug therapy
CPT/HCPCS: 36415; 71046; 80048; 80053; 83605; 83735; 83880; 84145; 85025; 86140; 86738; 87040; 87899; 93005; 93010; 96365; 96375; 99223; 99239; 99285; 99285-25; A9270-GY; J0456; J0696; J1644; J1885; J7030; J7050; U0002